=== PATIENT | male | born 1950 | race Caucasian/White ===

== ENCOUNTER → 2022-01-02 13:35 | Outpatient (BNVA) | payer MEDICARE, SELFPAY | PROVIDERS: PCP Family Medicine; Visit Provider Urology | DX: R97.20 Elevated prostate specific antigen [PSA] (principal); N40.1 Benign prostatic hyperplasia with lower urinary tract symptoms; N13.8 Other obstructive and reflux uropathy; R33.9 Retention of urine, unspecified; R31.0 Gross hematuria; E11.9 Type 2 diabetes mellitus without complications; Z79.899 Other long term (current) drug therapy | CPT/HCPCS: 99202 ==

== ENCOUNTER → 2022-05-06 13:52 | Outpatient (BNVA) | payer MEDICARE, SELFPAY | PROVIDERS: PCP Family Medicine; Visit Provider Urology | DX: R97.20 Elevated prostate specific antigen [PSA] (principal); N40.1 Benign prostatic hyperplasia with lower urinary tract symptoms; N13.8 Other obstructive and reflux uropathy; R35.1 Nocturia | CPT/HCPCS: 52000; 99212 ==

== ENCOUNTER 2022-11-05 12:21 | Outpatient (AMB) | payer MEDICARE, SELFPAY ==
--- NOTE | 2022-11-05 11:43 | A.OFFVIS_ITS ---
Intake Intake Visit Reasons: 6m follow up/PSA(set) Medication List - Last Reconciled 11/05/22 by Enrique Haskins MD atorvastatin 20 mg PO DAILY blood sugar diagnostic (FreeStyle Lite Strips) As directed famotidine 20 mg PO BID fenofibrate micronized 134 mg PO DAILY finasteride 5 mg PO DAILY 90 days lisinopril 20 mg PO DAILY metformin 1,000 mg PO BID pantoprazole 40 mg PO BID tamsulosin 0.4 mg PO DAILY HPI HPI Comments History of Present Illness Details Joshua is a pleasant male. He is a patient of . He is seen for the following urologic conditions - elevated PSA - BPH Good response to finasteride with PSA remaining at 2.7 Nocturia x2 Repeat PSA in 6 months Lower urinary tract symptoms Progressive rise in PSA and weakness of stream CALEB 2+ normal Prior evaluation for gross hematuria February 202002/27 CT urogram had indicated enlarged prostate. Cystoscopy confirmed finding with no abnormality of bladder but enlarged prostate Slowly rising PSA Prostate biopsy had been suggested by prior urologist Laboratory testing - 02/27 3.0, 11/29 4.5 - 03/01 ExoDx score 25 - with is over suggested cutoff of 20 however is still only indicative of relative risk - PSA on finasteride 05/01 2.4, 10/31 2.7 Concurrent disease include diabetes Therapeutic plan continue finasteride and repeat PSA in 6 months Review of Systems Const Denies chills and Denies fever(s) Card Reports no additional complaints and Denies syncope Resp Denies cough GI Denies abdominal pain and Denies heartburn Reports as per HPI and Denies change in libido Neuro Denies syncope Psych Denies change in libido Endo Denies change in libido Physical Exam Const General: cooperative, healthy appearing, comfortable and no acute distress Orientation/consciousness: patient oriented x3 HEENT Face and sinus: Yes normal facial exam Mouth: moist mucous membranes Neck Neck: Yes normal visual inspection, Yes full ROM and Yes trachea midline Chest Chest palpation & inspection: normal inspection of the chest Resp Effort & Inspection: normal respiratory effort, able to speak in complete sentences and no respiratory distress GI Inspection: Yes normal to inspection Back/Spine/Pelvis Cervical Spine: normal cervical lordosis Thoracic/Lumbar Spine: thoracic and lumbar spine normal to inspection Skin General skin exam: no rashes or lesions noted Neuro General: patient oriented x3, gait normal, tone normal and moves all extremities Extrem General: Yes normal to inspection and Yes capillary refill normal Assessment & Plan Assessment & Plan (1) Elevated PSA: Code(s): R97.20 - Elevated prostate specific antigen [PSA] (2) BPH w urinary obs/LUTS: Code(s): N40.1 - Benign prostatic hyperplasia with lower urinary tract symptoms; N13.8 - Other obstructive and reflux uropathy Plan Six month follow-up Orders: Orders Prostate Specific Antigen 6 Months N40.1 - Benign prostatic hyperplasia with lower urinary tract symptoms, N13.8 - Other obstructive and reflux uropathy Medications: Refilled finasteride 5 mg PO DAILY 90 tabs 1RF 90 days N40.1 - Benign prostatic hyperplasia with lower urinary tract symptoms, N13.8 - Other obstructive and reflux uropathy, R33.9 - Retention of urine, unspecified Patient Instructions: Imaging studies, laboratory and physical exam results were discussed and reviewed in detail. No major barriers to patient understanding were identified. An opportunity to ask questions regarding the treatment plan was provided. All questions were answered. The patient expressed understanding and agreement with the above treatment plan. The patient is aware they should contact our office by phone for worsening of their current condition or the appearance of new urologic symptoms. Compliance is encouraged with any medications and followup testing that is ordered. It is a privilege to participate in the urologic care of your patient. If you have any questions or concerns regarding treatment for the above conditions, or other urologic issues, please do not hesitate to contact me. The office telephone contact is [phone]. This note is constructed using voice recognition software. While every effort has been made to ensure accuracy private investigator surveillance errors may have been included. Yours sincerely, Dr Enrique Haskins MD, [facility] - Urology Providers of Expert, Compassionate Care for the Genitourinary System Coding Level of Care Code Est Pt Level 3 (00044) Diagnoses Elevated PSA R97.20 BPH w urinary obs/LUTS N40.1; N13.8
== END 2022-11-05 13:22 | disposition home or self-care (01) ==
LOC: HO.HUSH 12:21
PROVIDERS: PCP Family Medicine; Visit Provider Urology
DX: R97.20 Elevated prostate specific antigen [PSA] (principal); N40.1 Benign prostatic hyperplasia with lower urinary tract symptoms; N13.8 Other obstructive and reflux uropathy
CPT/HCPCS: 99213

== ENCOUNTER → 2022-11-05 12:21 | Outpatient (BNVA) | payer MEDICARE, SELFPAY | PROVIDERS: PCP Family Medicine; Visit Provider Urology | DX: N40.1 Benign prostatic hyperplasia with lower urinary tract symptoms (principal); N13.8 Other obstructive and reflux uropathy; R39.12 Poor urinary stream; R97.20 Elevated prostate specific antigen [PSA]; R33.9 Retention of urine, unspecified; R35.1 Nocturia | CPT/HCPCS: 99212 ==

== ENCOUNTER 2023-07-08 11:07 | Outpatient (AMB) | payer MEDICARE, SELFPAY ==
--- NOTE | 2023-07-08 11:09 | A.OFFVIS_ITS ---
Intake Intake Visit Reasons: 6m/PSA(psa?)Confirmed Intake Note: Patient presents today for a 6 month follow-up Meds- Tamsulosin, Finasteride, Allergies to Antibiotic- No Known Allergies Blood Thinner- None Post Void Residual:15ml Technical Proposal Writer Required: No Accompanied by: Allergies nkda Allergy (Unknown, Uncoded 07/08/23 11:26) Unknown Medication List - Last Reconciled 07/08/23 by Enrique Haskins MD atorvastatin 20 mg PO DAILY blood sugar diagnostic (FreeStyle Lite Strips) As directed empagliflozin (Jardiance) 10 mg PO DAILY famotidine 20 mg PO BID fenofibrate micronized 134 mg PO DAILY finasteride 5 mg PO DAILY 90 days lisinopril 20 mg PO DAILY pantoprazole 40 mg PO BID tamsulosin 0.4 mg PO DAILY HPI HPI Comments History of Present Illness Details Joshua is a pleasant male. He is a patient of . He is seen for the following urologic conditions - elevated PSA - BPH PSA 4.4 Nocturia x2 Remains on finasteride. Discussed repeating PSA in 4 months. Discussed steps to minimize noise on PSA level - no caffeine the morning of, coffee, Coke, tea Recommend biopsy if persistently elevated PSA Lower urinary tract symptoms Progressive rise in PSA and weakness of stream CALEB 2+ normal Prior evaluation for gross hematuria February 202002/27 CT urogram had indicated enlarged prostate. Cystoscopy confirmed finding with no abnormality of bladder but enlarged prostate Slowly rising PSA Prostate biopsy had been suggested by prior urologist Laboratory testing - 02/27 3.0, 11/29 4.5 - 03/01 ExoDx score 25 - with is over suggested cutoff of 20 however is still only indicative of relative risk - PSA on finasteride 05/01 2.4, 10/31 2.7, 06/02 4.4 Concurrent disease include diabetes Therapeutic plan continue finasteride and repeat in 4 months Review of Systems Const Denies chills and Denies fever(s) Card Reports no additional complaints and Denies syncope Resp Denies cough GI Denies abdominal pain and Denies heartburn Reports as per HPI and Denies change in libido Neuro Denies syncope Psych Denies change in libido Endo Denies change in libido Physical Exam Const General: cooperative, healthy appearing, comfortable and no acute distress Orientation/consciousness: patient oriented x3 HEENT Face and sinus: Yes normal facial exam Mouth: moist mucous membranes Neck Neck: Yes normal visual inspection, Yes full ROM and Yes trachea midline Chest Chest palpation & inspection: normal inspection of the chest Resp Effort & Inspection: normal respiratory effort, able to speak in complete sentences and no respiratory distress GI Inspection: Yes normal to inspection Back/Spine/Pelvis Cervical Spine: normal cervical lordosis Thoracic/Lumbar Spine: thoracic and lumbar spine normal to inspection Skin General skin exam: no rashes or lesions noted Neuro General: patient oriented x3, gait normal, tone normal and moves all extremities Extrem General: Yes normal to inspection and Yes capillary refill normal Office Procedures Post Void Residual Post Residual Void Post Void Residual (PVR): 15 [id number] Void Residual by ultrasound Assessment & Plan Assessment & Plan (1) Elevated PSA: Code(s): R97.20 - Elevated prostate specific antigen [PSA] (2) BPH w urinary obs/LUTS: Code(s): N40.1 - Benign prostatic hyperplasia with lower urinary tract symptoms; N13.8 - Other obstructive and reflux uropathy Plan Four month follow-up PSA Orders: Orders AMB Post Void Residual by ultrasound Today R33.9 - Retention of urine, unspecified PSA,Total (Free>4and<10) 4 Months R97.20 - Elevated prostate specific antigen [PSA] Patient Instructions: Imaging studies, laboratory and physical exam results were discussed and reviewed in detail. No major barriers to patient understanding were identified. An opportunity to ask questions regarding the treatment plan was provided. All questions were answered. The patient expressed understanding and agreement with the above treatment plan. The patient is aware they should contact our office by phone for worsening of their current condition or the appearance of new urologic symptoms. Compliance is encouraged with any medications and followup testing that is ordered. It is a privilege to participate in the urologic care of your patient. If you have any questions or concerns regarding treatment for the above conditions, or other urologic issues, please do not hesitate to contact me. The office telephone contact is [phone]. This note is constructed using voice recognition software. While every effort has been made to ensure accuracy social services assistant errors may have been included. Yours sincerely, Dr Enrique Haskins MD, [facility] - Urology Providers of Expert, Compassionate Care for the Genitourinary System Coding Level of Care Code Est Pt Level 3 (91035) Diagnoses Elevated PSA R97.20 BPH w urinary obs/LUTS N40.1; N13.8 CPT Codes Post Residual Void - PVR CPT Code: 90224-[id number] Void Residual by ultrasound ([id number])
== END 2023-07-08 11:46 | disposition home or self-care (01) ==
PROVIDERS: PCP Family Medicine; Visit Provider Urology
DX: R97.20 Elevated prostate specific antigen [PSA] (principal); N40.1 Benign prostatic hyperplasia with lower urinary tract symptoms; N13.8 Other obstructive and reflux uropathy
CPT/HCPCS: 99213

== ENCOUNTER → 2023-07-08 11:07 | Outpatient (BNVA) | payer MEDICARE, SELFPAY | PROVIDERS: PCP Family Medicine; Visit Provider Urology | DX: R97.20 Elevated prostate specific antigen [PSA] (principal); N40.1 Benign prostatic hyperplasia with lower urinary tract symptoms; N13.8 Other obstructive and reflux uropathy | CPT/HCPCS: 51798; 99212 ==

== ENCOUNTER 2023-11-05 11:26 | Outpatient (AMB) | payer MEDICARE, SELFPAY ==
--- NOTE | 2023-11-05 11:27 | A.OFFVIS_ITS ---
Intake Visit Reasons: 4m/PSA(psa?) Intake Note: Patient presents today for tele visit follow up Meds- Tamsulosin, Finasteride, Allergies to Antibiotic- No Known Allergies Blood Thinner- None Local Government Legislator Required: No Accompanied by: Allergies nkda Allergy (Unknown, Uncoded 11/05/23 11:28) Unknown HPI Comments Details: Joshua is a pleasant male. He is a patient of . He is seen for the following urologic conditions - Elevated PSA - Lower Urinary Tract Symptoms Telemedicine Evaluation 15 min Consultation [employer] Video PSA 11/01 5.1 Nocturia x2 Remains on finasteride Discussed steps to minimize noise on PSA level - no caffeine the morning of, coffee, Coke, tea Recommend biopsy He has read about getting an MRI 1st for a fusion biopsy. MRI ordered. Lower urinary tract symptoms Progressive rise in PSA and weakness of stream CALEB 2+ normal Prior evaluation for gross hematuria February 202002/27 CT urogram had indicated enlarged prostate. Cystoscopy confirmed finding with no abnormality of bladder but enlarged prostate Slowly rising PSA Prostate biopsy had been suggested by prior urologist Laboratory testing - 02/27 3.0, 11/29 4.5 - 03/01 ExoDx score 25 - with is over suggested cutoff of 20 however is still only indicative of relative risk - PSA on finasteride 05/01 2.4, 10/31 2.7, 06/02 4.4, 07/04 4.4 Concurrent disease include diabetes Therapeutic plan continue finasteride and repeat in 4 months Review of Systems Const All systems reviewed & are unremarkable except as noted in HPI and below Reports no additional complaints Resp Reports no additional complaints GI Reports no additional complaints Reports as per HPI Musc Reports no additional complaints Physical Exam Telemedicine evaluation Appropriate responses Regular breathing rate and rhythm HEENT Head: Yes normal to inspection Ears: hearing grossly normal bilaterally Eyes General: appearance normal, both eyes and all related structures Neck Neck: Yes normal visual inspection Chest Chest palpation & inspection: normal inspection of the chest Resp Effort & Inspection: normal respiratory effort and able to speak in complete sentences Telehealth Telehealth Telehealth Platform: [employer]a et Léo Location of provider rendering services: practice address Location of patient: address on file Patient Identification confirmed using: Name, : Yes Telehealth method: video Patient verbally consented to treatment: Yes Patient verbally consented to billing insurance company: Yes Patient informed of any privacy concerns related to visit: Yes Assessment & Plan Assessment & Plan (1) Elevated PSA: Code(s): R97.20 - Elevated prostate specific antigen [PSA] Category: Medical (2) BPH w urinary obs/LUTS: Code(s): N40.1 - Benign prostatic hyperplasia with lower urinary tract symptoms; N13.8 - Other obstructive and reflux uropathy Category: Medical Plan Prostate MRI Consider targeted biopsy Orders: Orders Creatinine Today R39.15 - Urgency of urination, R97.20 - Elevated prostate specific antigen [PSA] Blood Urea Nitrogen Today R39.15 - Urgency of urination, R97.20 - Elevated prostate specific antigen [PSA] MR pelvis wo/w con Today R97.20 - Elevated prostate specific antigen [PSA] Medications: New levofloxacin Take day before, day of and day after procedure 500 mg PO ONCE 3 days 3 tabs 0RF R97.20 - Elevated prostate specific antigen [PSA] Refilled finasteride 5 mg PO DAILY 90 days 90 tabs 1RF N13.8 - Other obstructive and reflux uropathy, N40.1 - Benign prostatic hyperplasia with lower urinary tract symptoms, R33.9 - Retention of urine, unspecified Patient Instructions: Imaging studies, laboratory and physical exam results were discussed and reviewed in detail. No major barriers to patient understanding were identified. An opportunity to ask questions regarding the treatment plan was provided. All questions were answered. The patient expressed understanding and agreement with the above treatment plan. The patient is aware they should contact our office by phone for worsening of their current condition or the appearance of new urologic symptoms. Compliance is encouraged with any medications and followup testing that is ordered. It is a privilege to participate in the urologic care of your patient. If you have any questions or concerns regarding treatment for the above conditions, or other urologic issues, please do not hesitate to contact me. The office telephone contact is [phone]. This note is constructed using voice recognition software. While every effort has been made to ensure accuracy shift production supervisor errors may have been included. Yours sincerely, Dr Enrique Haskins MD, E[facility] - Urology Providers of Expert, Compassionate Care for the Genitourinary System Coding Level of Care Code Tele Est Pt Level 3 (74570) Diagnoses Elevated PSA R97.20 BPH w urinary obs/LUTS N40.1; N13.8
== END 2023-11-05 14:30 | disposition home or self-care (01) ==
LOC: HO.HUSH 11:26
PROVIDERS: PCP Family Medicine; Visit Provider Urology
DX: R97.20 Elevated prostate specific antigen [PSA] (principal); N40.1 Benign prostatic hyperplasia with lower urinary tract symptoms; N13.8 Other obstructive and reflux uropathy
CPT/HCPCS: 99213

== ENCOUNTER → 2023-11-05 11:26 | Outpatient (BNVA) | payer MEDICARE, SELFPAY | PROVIDERS: PCP Family Medicine; Visit Provider Urology ==

== ENCOUNTER 2024-02-11 09:11 | Outpatient (AMB) | payer MEDICARE, SELFPAY ==
--- NOTE | 2024-02-11 09:07 | A.OFFVIS_ITS ---
Intake Visit Reasons: H&P Prostate Biopsy Intake Note: Patient is present for H&P PROSTATE BIOPSY Urology Medication:LEVOFLOXACIN, FINESTERIDE, TAMSULOSIN Antibiotic Allergy:NONE Blood Thinner:NONE Servicing Rep Required: No Allergies nkda Allergy (Unknown, Uncoded 02/11/24 09:09) Unknown HPI Comments Details: Joshua is a pleasant male. He is a patient of . He is seen for the following urologic conditions - Elevated PSA - Lower Urinary Tract Symptoms Telemedicine Evaluation 15 min Consultation [employer] Saira Video PSA 11/01 5.1, 02/01 5.7 Nocturia x2 Remains on finasteride PCP T calculator would suggest 5-10% risk of high-grade prostate cancer based on free and total PSA MRI performed shows 3.6 cm lesion with contrast enhancement at left apex prostate PiRADS 5 Had repeat gross hematuria recently so needs repeat cystoscopy Lower urinary tract symptoms Progressive rise in PSA and weakness of stream CALEB 2+ normal Prior evaluation for gross hematuria February 202002/27 CT urogram had indicated enlarged prostate. Cystoscopy confirmed finding with no abnormality of bladder but enlarged prostate Slowly rising PSA Prostate biopsy had been suggested by prior urologist Laboratory testing - 02/27 3.0, 11/29 4.5 - 03/01 ExoDx score 25 - with is over suggested cutoff of 20 however is still only indicative of relative risk - PSA on finasteride 05/01 2.4, 10/31 2.7, 06/02 4.4, 07/04 4.4 Concurrent disease include diabetes Therapeutic plan continue finasteride and repeat in 4 months Review of Systems Const All systems reviewed & are unremarkable except as noted in HPI and below Reports no additional complaints Resp Reports no additional complaints GI Reports no additional complaints Reports as per HPI Musc Reports no additional complaints Physical Exam Telemedicine evaluation Appropriate responses Regular breathing rate and rhythm HEENT Head: Yes normal to inspection Ears: hearing grossly normal bilaterally Eyes General: appearance normal, both eyes and all related structures Neck Neck: Yes normal visual inspection Chest Chest palpation & inspection: normal inspection of the chest Resp Effort & Inspection: normal respiratory effort and able to speak in complete sentences Telehealth Telehealth Location of provider rendering services: practice address Location of patient: address on file Patient Identification confirmed using: Name, : Yes Telehealth method: voice only Patient verbally consented to treatment: Yes Patient verbally consented to billing insurance company: Yes Patient informed of any privacy concerns related to visit: Yes Assessment & Plan Assessment & Plan (1) Elevated PSA: Code(s): R97.20 - Elevated prostate specific antigen [PSA] Category: Medical (2) BPH w urinary obs/LUTS: Code(s): N40.1 - Benign prostatic hyperplasia with lower urinary tract symptoms; N13.8 - Other obstructive and reflux uropathy Category: Medical (3) Gross hematuria: Code(s): R31.0 - Gross hematuria Category: Medical Plan Risks, benefits and alternatives to therapy were discussed. These include but are not limited to infection, bleeding, damage to local organs and tissues, need for further interventions. Anesthetic risks regarding cardiac arrhythmia, blood clots, and potential mortality were discussed. The patient understands the typical recovery time and the outpatient nature of the procedure. After consideration of these risks the patient gives full informed consent and they wish to move ahead with the procedure. Prostate Biopsy and Cystoscopy Patient Instructions: Imaging studies, laboratory and physical exam results were discussed and reviewed in detail. No major barriers to patient understanding were identified. An opportunity to ask questions regarding the treatment plan was provided. All questions were answered. The patient expressed understanding and agreement with the above treatment plan. The patient is aware they should contact our office by phone for worsening of their current condition or the appearance of new urologic symptoms. Compliance is encouraged with any medications and followup testing that is ordered. It is a privilege to participate in the urologic care of your patient. If you have any questions or concerns regarding treatment for the above conditions, or other urologic issues, please do not hesitate to contact me. The office telephone contact is [phone]. This note is constructed using voice recognition software. While every effort has been made to ensure accuracy computer programming manager errors may have been included. Yours sincerely, Dr Enrique Haskins MD, EWA [facility] - Urology Providers of Expert, Compassionate Care for the Genitourinary System Coding Level of Care Code Tele Est Pt Level 3 (25930) Diagnoses Elevated PSA R97.20 BPH w urinary obs/LUTS N40.1; N13.8 Gross hematuria R31.0
== END 2024-02-11 09:50 | disposition home or self-care (01) ==
LOC: HO.HUSH 09:11
PROVIDERS: PCP Family Medicine; Visit Provider Urology
DX: R97.20 Elevated prostate specific antigen [PSA] (principal); N40.1 Benign prostatic hyperplasia with lower urinary tract symptoms; N13.8 Other obstructive and reflux uropathy; R31.0 Gross hematuria
CPT/HCPCS: 99442

== ENCOUNTER → 2024-02-11 09:11 | Outpatient (BNVA) | payer MEDICARE, SELFPAY | PROVIDERS: PCP Family Medicine; Visit Provider Urology ==

== ENCOUNTER 2024-02-16 07:45 | Outpatient (REF) | payer MEDICARE, SELFPAY ==
[2024-02-16] MEDS: levoFLOXacin 500 MG TABLET PO (08:36)
[2024-02-16] MEDS: Lidocaine HCl 1 % MPF 5 ML VIAL 10 ML SUBCUT (08:36)
--- NOTE | 2024-02-16 18:17 | W.PM.OPN ---
Operative Note Operative Note Date of Service: 02/16/24 Narrative: Preoperative diagnosis: Elevated PSA, hematuria Postoperative diagnosis: Elevated PSA , hematuria Procedure: Cystoscopy 1. transrectal ultrasound measurement of prostate 2. transrectal ultrasound-guided pudendal nerve block 3. transrectal ultrasound-guided prostate biopsy 12 core Surgeon: Dr. Enrique Haskins Anesthetic: Lidocaine per urethra, 10cc 1% lidocaine Indications for procedure: Elevated PSA 5.6, hematuria Counselling: Technical aspects, risks and benefits of proposed procedure were discussed in full. All questions have been answered, written consent has been obtained and patient agrees to proceed. Procedure: The patient was brought into the procedure area and placed supine position. Patient identity confirmed. Perioperative antibiotics confirmed. Safety pause time out performed. Cystoscopy performed using a disposable Urovue digital 16 Estonian cystoscope. Meatus circumcised Urethra anterior and posterior urethra normal Prostatic Urethra unremarkable - area of vascularity on prostate Bladder examination with retroflexion of cystoscope Bladder Orifices normal shape and position Bladder Capacity medium Trabeculations grade 2 Cellule Formation - Diverticulum Formation - Mucosal Erythema - Bladder Tumor - Upon completion of the procedure patient placed in a left lateral decubitus position. CALEB was performed to dilate rectal sphincter Iodine 10cc with 60 cc gel was placed per rectum to reduce infection risk using a catheter tip syringe. 8 Hz Ian rectal end-fire ultrasound probe was placed transrectally without difficulty. The prostate was visualized. Seminal vesicles were normal. Prostate margins were clearly demarcated. Bladder was seen superiorly. No cystic structures were noted No calcifications were noted at the surgical margin Left posterior lateral deformity of prostate consistent with apical nodule that was felt on initial CALEB The prostate was measured in 3 dimensions Prostatic Width: 4.8 cm Prostatic Height: 4.3 cm Urethral Length: 5.5 cm Total volume equals : 60 ml An ultrasound-guided pudendal nerve block was performed using a 22 gauge spinal needle in the sagittal plane. 4 cc of 1% lidocaine placed at the junction of each seminal vesicle and 2 cc placed at the apex of the prostate. A 12 core biopsy was performed with 6 cores each side using an 18 gauge prostate biopsy gun. Two cores each were taken at the prostate apex, mid and base on each side. Cores were spaced between lateral and medial aspects. Each core was examined as placed on specimen foam as part of machined parts quality inspector to ensure a minimum 1 cm of length and minimal discontinuity. He tolerated the procedure well with minimal rectal bleeding. Blood pressure remained stable following procedure. He was able to ambulate to bathroom after 5 minutes. Printed instructions regarding antibiotic use and common adverse events from the procedure such as low-grade temperature, potential infection and bleeding were given. He understands to call the office or go to an emergency room should any of these events arise. Pathology: 12 core prostate biopsy. CPT code 31401: Transrectal ultrasound; this is a diagnostic test for evaluation of the prostate and surrounding structures, looking for abnormalities or suspicious areas worrisome for cancer CPT code 61373: Biopsy, prostate; needle or punch, single or multiple, any approach CPT code 78025: Ultrasonic guidance for needle placement (eg, biopsy, aspiration, injection, localization device), imaging supervision and interpretation
== END 2024-02-16 07:46 | disposition home or self-care (01) ==
LOC: HO.US 07:45
PROVIDERS: PCP Family Medicine; Visit Provider Urology
DX: R97.20 Elevated prostate specific antigen [PSA] (principal); R31.9 Hematuria, unspecified
CPT/HCPCS: 55700; 76942; 88305; 88344; J2003

== ENCOUNTER → 2024-02-16 07:45 | Outpatient (BNV) | payer MEDICARE, SELFPAY | PROVIDERS: PCP Family Medicine; Visit Provider Urology | DX: R97.20 Elevated prostate specific antigen [PSA] (principal); R31.9 Hematuria, unspecified | CPT/HCPCS: 55700; 76872; 76942 ==

== ENCOUNTER 2024-03-03 14:07 | Outpatient (AMB) | payer MEDICARE, SELFPAY ==
--- NOTE | 2024-03-03 14:09 | A.OFFVIS_ITS ---
Intake Visit Reasons: Prostate bx results Intake Note: Patient is Present for Telephone Follow Up Biopsy Results Urology Med: Finasteride Antibiotic Allergy: None Blood Thinner:None Allergies nkda Allergy (Unknown, Uncoded 02/11/24 09:09) Unknown HPI Comments Details: Joshua is a pleasant male. He is a patient of . He is seen for the following urologic conditions - Elevated PSA - Lower Urinary Tract Symptoms - Prostate Cancer Telemedicine Evaluation 15 min Consultation [email or web address] Saira Video Discussed prostate cancer diagnosis Options for therapy presented Plan PET-CT scan Referral to Dr. Kaye radiation oncology at [facility] Two week follow-up GnRH injection Prostate Cancer Therapy Discussion today focused on treatment options for prostate cancer. The patient has already reviewed educational materials that had been provided to him in printed form. The NCCN criteria for imaging, molecular testing and germ line testing were discussed. Prognostic Model Information calculated using STAR-CAPS [email or web address] Stage Prediction T2a 5yr Specific Mortality 96% 10yr Specfic Mortality 85% The discussion was then focused on therapeutic options which include 1) Deferred therapy/active surveillance. Recommended in the setting of low volume, very low risk and low risk disease. Criteria include 3 cores all less, same side, no core greater than 50% disease. Evaluation may be augmented with imaging such as pelvic MRI and genetic evaluation of biopsy material. Somatic tissue genetic testing such as Prolaris, which focuses on tumor-specific pathogenic variants that may identify an indication for further germline testing and can guide therapeutic decisions in the setting of low risk and low volume disease. - The patient is not a candidate for active surveillance. NCCN Prostate Cancer Guideline 4.2022 PROS-F Page 2 PRINCIPLES OF ACTIVE SURVEILLANCE AND OBSERVATION Confirmatory Testing to Establish Appropriateness of Active Surveillance: - Goals of confirmatory testing are to help facilitate early identification of those patients who may be at a higher risk of future grade reclassification or cancer progression. - Since an initial prostate biopsy may underestimate tumor grade or volume, confirmatory testing is strongly recommended within the first 6 to 12 months of diagnosis for patients who are considering active surveillance. - Options for confirmatory testing include prostate biopsy, mpMRI with calculation of PSA density (and repeat biopsy as indicated), and/or molecular tumor analysis, see Principles of Risk Stratification (PROS-D). - Early confirmatory testing may not be necessary in patients who have had an mpMRI prior to diagnostic biopsy. ?All patients should undergo a confirmatory prostate biopsy within 1?2 years of their diagnostic biopsy 2) Targeted Cryotherapy Ablation. The technique of cryotherapy was described. PSA free progression rates were discussed. Suitable candidates in general have low volume grade group 1 or grade group 2 disease. Typically pelvic MRI with targeted mapping biopsies are required for treatment planning. - The patient is not a candidate for image guided targeted cryotherapy ablation. 3) Robotic Prostatectomy. Salient features of the patient's PSA, Wilson score and disease stage were applied to the [facility] nomogram. Relevant rates of extracapsular extension, seminal vesicle involvement consuelo involvement with discussed. Pathologic up staging and down staging on final specimen was discussed. Salient features of the procedure, hospitalization and recovery were discussed. - The patient is not a candidate for robotic prostatectomy. 4) Radiation therapy was described. IMRT, hyperfractionated therapy, permanent seed implant with all without concomitant androgen deprivation therapy and rectal protection were discussed. There is a small separation regarding cancer control between radiation and prostatectomy at approximately 15 years. There is an evolving preference for hyper fractionated therapy. This gives the same radiation total dose in a reduced number of individual treatment sessions. This approach is associated with higher risks of rectal bleeding. To ameliorate these risks injection of a spacer gel posterior to the prostate has been advocated. This is only indicated in patients without evidence of extracapsular extension posteriorly, and should be considered with caution where disease is primary grade 4. Brachytherapy was described in detail. Typically this is a same day procedure. Therapy is typically well tolerated and gives good control for low-risk prostate cancer and cancer that does not involve neurovascular invasion. - The patient is a candidate for hormones plus hyperfractionated therapy with possible rectal spacer Different risks were described for each therapeutic option. Ranges from the published literature were discussed. Consequent morbidity and treatment to address complications were discussed. These include - robotic prostatectomy - Typically patients are in hospital for one day and miss 4 weeks of work. The importance of preoperative walking and Kegel exercises was stressed. Complications, including but not limited to; acute complications regarding blood loss, transfusion, DVT, ileus, wound infection and potential mortality. Long-term complications such as impotence, UTI, urethral stricture, bladder neck contracture, incontinence. Penile shrinkage and chronic pain were discussed and reviewed. - radiation - IMRT typically this takes 25-40 daily treatments administered on a Thursday through Thursday sequence. Treatment is normally well tolerated. associated side effects include urge, frequency, dysuria, hematuria, loose bowels and fatigue, particularly toward the end of therapy. These can be ameliorated to some degree with medication. Long-term risks regarding impotence and a small risk of chronic urinary urge and incontinence were discussed - brachytherapy General anesthesia is used. Radioactive seeds are placed. There may be a required planning visit. Risks regarding anesthesia with DVT, PE, infection, urinary retention, urgency, and frequency were discussed. Long-term risks include bladder neck contraction, impotence, urge, potential for secondary cancer of the bladder base The patient has Grade Group for pT2 prostate cancer disease The patient is a candidate for germline testing in accordance with the NCCN guideline Germline testing Germline testing is used to identify inherited pathogenic variants in DNA, which can guide screening, familial testing, and treatment decision-making. The National Comprehensive Cancer Network (NCCN) has recommended the use of germline genetic testing for patients with prostate cancer since 2018.?Germline testing should be considered for patients with clinically low-to intermediate- localized disease with a family history of prostate cancer; or high-to very high-risk localized disease. For regional or distant metastatic disease, germline testing is recommended regardless of initial risk. Please see the vania posada excerpt. NCCN Version 4.2023 PROS-C 2 of 3 Germline testing is recommended in patients with a personal history of prostate cancer in the following scenarios: ? By prostate cancer stage or risk group (diagnosed at any age) - Metastatic, regional (node positive), [id number] localized, or high- risk localized prostate cancer ? By family history and/or ancestry - >= 1 - first-, second-, or third-degree relative with: - breast cancer at age <50 - colorectal or endometrial cancer at age <50 - male (sex assigned at ) breast cancer at any age - ovarian cancer at any age - exocrine pancreatic cancer at any age - metastatic, regional, pcyo-xmxy-geny, or high-risk prostate cancer at any age - >= 1- first-degree relative (parent or sibling) with: - prostate cancer at age <60 - >= 2- first-, second-, or third-degree relatives with: - breast cancer at any age - prostate cancer at any age - >= 3 - first- or second-degree relatives with: - Crespo syndrome-related cancers, especially if diagnosed <50 y: colorectal, endometrial, gastric, ovarian, exocrine pancreas, upper tract urothelial, glioblastoma, biliary tract, and small intestinal cancer - A known family history of familial cancer risk mutation (pathogenic/likely pathogenic variants), especially in: BRCA1, BRCA2, LILIAM, PALB2, CHEK2, MLH1, MSH2, MSH6, PMS2, and EPCAM - Ashkenazi Gnosticist ancestry ? Personal history of breast cancer Germline testing may be considered in patients with a personal history of prostate cancer in the following scenarios: ? By prostate cancer tumor characteristics (diagnosed at any age) - intermediate-risk prostate cancer with intraductal/cribriform histologyc ? By prostate cancer AND a prior personal history of any of the following cancers: exocrine pancreatic, colorectal, gastric, melanoma, upper tract urothelial, glioblastoma, biliary tract, and small intestinal References: Ruth RT, Av K, Jamal MJ, et al. Development and Validation of a Clinical Prognostic Stage Group System.?[facility]. doi: [email or web address] PSA 11/01 5.1, 02/01 5.7 PCP T calculator would suggest 5-10% risk of high-grade prostate cancer based on free and total PSA MRI performed shows 3.6 cm lesion with contrast enhancement at left apex prostate PiRADS 5 Prostate Cancer - Grade Group 4 - Wilson 8 Histologic type: Adenocarcinoma Histologic grade: Wilson score: 4+4=8 % of pattern 4: 100% % of pattern 5: Not identified Grade group: 4 Tumor quantitation: Number cores positive: 5 Total number of cores: 12 % of tissue involved: See above for details Periprostatic fat inv.: Not identified Seminal vesicle inv.: Not identified Perineural inv.: Not identified LVI: Not identified Lower urinary tract symptoms Progressive rise in PSA and weakness of stream CALEB 2+ normal Prior evaluation for gross hematuria February 202002/27 CT urogram had indicated enlarged prostate. Cystoscopy confirmed finding with no abnormality of bladder but enlarged prostate Slowly rising PSA Prostate biopsy had been suggested by prior urologist Laboratory testing - 02/27 3.0, 11/29 4.5 - 03/01 ExoDx score 25 - with is over suggested cutoff of 20 however is still only indicative of relative risk - PSA on finasteride 05/01 2.4, 10/31 2.7, 06/02 4.4, 07/04 4.4 Concurrent disease include diabetes Therapeutic plan continue finasteride and repeat in 4 months Review of Systems Const All systems reviewed & are unremarkable except as noted in HPI and below Reports no additional complaints Resp Reports no additional complaints GI Reports no additional complaints Reports as per HPI Musc Reports no additional complaints Physical Exam Telemedicine evaluation Appropriate responses Regular breathing rate and rhythm HEENT Head: Yes normal to inspection Ears: hearing grossly normal bilaterally Eyes General: appearance normal, both eyes and all related structures Neck Neck: Yes normal visual inspection Chest Chest palpation & inspection: normal inspection of the chest Resp Effort & Inspection: normal respiratory effort and able to speak in complete sentences Telehealth Telehealth Location of provider rendering services: practice address Location of patient: address on file Patient Identification confirmed using: Name, : Yes Telehealth method: voice only Patient verbally consented to treatment: Yes Patient verbally consented to billing insurance company: Yes Patient informed of any privacy concerns related to visit: Yes Assessment & Plan Assessment & Plan (1) Hormone sensitive prostate cancer: Code(s): C61 - Malignant neoplasm of prostate; Z19.1 - Hormone sensitive malignancy status Category: Medical Plan See above Orders: Orders PET CT fusion skull to thigh Today C61 - Malignant neoplasm of prostate, Z19.1 - Hormone sensitive malignancy status Referrals Radiation Oncology Referral C61 - Malignant neoplasm of prostate, Z19.1 - Hormone sensitive malignancy status Patient Instructions: Imaging studies, laboratory and physical exam results were discussed and reviewed in detail. No major barriers to patient understanding were identified. An opportunity to ask questions regarding the treatment plan was provided. All questions were answered. The patient expressed understanding and agreement with the above treatment plan. The patient is aware they should contact our office by phone for worsening of their current condition or the appearance of new urologic symptoms. Compliance is encouraged with any medications and followup testing that is ordered. It is a privilege to participate in the urologic care of your patient. If you have any questions or concerns regarding treatment for the above conditions, or other urologic issues, please do not hesitate to contact me. The office telephone contact is [phone]. This note is constructed using voice recognition software. While every effort has been made to ensure accuracy gang worker errors may have been included. Yours sincerely, Dr Enrique Haskins MD, EWA [facility] - Urology Providers of Expert, Compassionate Care for the Genitourinary System Coding Level of Care Code Tele Est Pt Level 4 (16855) Diagnoses Hormone sensitive prostate cancer C61; Z19.1
== END 2024-03-03 15:17 | disposition home or self-care (01) ==
LOC: HO.HUSH 14:07
PROVIDERS: PCP Family Medicine; Visit Provider Urology
DX: C61 Malignant neoplasm of prostate (principal); Z19.1 Hormone sensitive malignancy status
CPT/HCPCS: 99442

== ENCOUNTER → 2024-03-03 14:07 | Outpatient (BNVA) | payer MEDICARE, SELFPAY | PROVIDERS: PCP Family Medicine; Visit Provider Urology ==

== ENCOUNTER 2024-03-15 09:56 | Outpatient (AMB) | payer MEDICARE, SELFPAY ==
--- NOTE | 2024-03-15 10:23 | AM.OFFVISNUR ---
Intake Visit Reasons: Firmagon(1st)PA Set Allergies nkda Allergy (Unknown, Uncoded 02/11/24 09:09) Unknown Office Meds degarelix 120 mg subcutaneous solution Performing Provider: Enrique Haskins MD [facility] Administered by: Chepe Ramos LPN on 03/15/24 10:23 Dose Route Admin Location Dispensed Lot Number Expiration Date [facility] Airline Reservation Agent 240 mg subcut abdomen 240 mg [id number] 02/08/26 [address]-1 [facility] Assessment & Plan Assessment & Plan Orders: Orders AMB Degarelix Injection Practice Supplied Today C61 - Malignant neoplasm of prostate, Z19.1 - Hormone sensitive malignancy status Medications: New degarelix 240 mg subcut ONCE 1 ea 0RF C61 - Malignant neoplasm of prostate, Z19.1 - Hormone sensitive malignancy status
== END 2024-03-15 10:29 | disposition home or self-care (01) ==
LOC: HO.HUSH 09:57
PROVIDERS: PCP Family Medicine; Visit Provider Urology
DX: C61 Malignant neoplasm of prostate (principal); Z19.1 Hormone sensitive malignancy status
CPT/HCPCS: 96402

== ENCOUNTER → 2024-03-15 09:56 | Outpatient (BNVA) | payer MEDICARE, SELFPAY | PROVIDERS: PCP Family Medicine; Visit Provider Urology | DX: C61 Malignant neoplasm of prostate (principal); Z19.1 Hormone sensitive malignancy status; Z79.818 Long term (current) use of other agents affecting estrogen receptors and estrogen levels | CPT/HCPCS: 96402; J9155 ==

== ENCOUNTER 2024-03-29 07:57 | Outpatient (REF) | payer MEDICARE, SELFPAY ==
--- NOTE | ~2024-03-29 | PE_ITS ---
EXAMINATION: 68Ga-PSMA (ILLUCCIX) PET/CT CLINICAL INDICATION: Initial treatment management. Malignant neoplasm of prostate. Prostate biopsy 02/16/2024. PROCEDURE: Radiopharmaceutical: 68Ga-PSMA (Illuccix); Dose: 5.6 mCi injected in the left antecubital fossa. Image acquisition: 55 minutes following IV radiotracer administration, positron emission tomography was performed from the mid thighs to vertex. Non-contrast low-dose helical CT imaging was performed over the same range without breath-hold for attenuation correction of PET images and anatomic correlation. Total CT exam dose-length product 1015.94 mGy-cm * These CT images were obtained using dose optimization techniques as appropriate, variously including the following: Automated exposure control * Adjustment of mA and/or kV according to patient size (this includes techniques or standardized protocols for targeted exams where dose is matched to indication/reason for exam; i.e. extremities or head) * Use of iterative reconstruction technique COMPARISON: No previous PET CT scan or other relevant imaging studies are available for comparison. The report of an MRI of the prostate performed at [facility] dated 12/21/2023 is available. Additional Clinical information: Surgery:Now ; XRT: No ADT: No FINDINGS: NECK AND VISUALIZED HEAD: There are no foci of abnormal PSMA activity in this region. The distribution of activity appears physiological. THORAX: There are no foci of abnormal PSMA activity in the chest. No suspicious pulmonary nodules are visualized. There is no pleural or pericardial fluid, or pneumothorax. There is no mediastinal, supraclavicular, or axillary lymphadenopathy. ABDOMEN AND PELVIS: In the prostate gland there is a focus of low intensity increased PSMA activity in the apex right anterolateral peripheral zone. This shows SUVmax 4.2, slice 270/311. There are no other discrete foci of abnormal PSMA activity within the prostate. There are no additional foci of abnormal activity at any site in the abdomen and pelvis. Diffuse gastrointestinal activity, homogeneous activity in the liver and spleen and both kidneys is noted and appears physiological. The gallbladder has been resected and there are metallic surgical clips in the gallbladder bed. There is no retroperitoneal, mesenteric, pelvic or inguinal lymphadenopathy. MUSCULOSKELETAL: There are no foci of abnormal PSMA activity in the osseous structures. There are degenerative changes in the spine, most severely in the mid thoracic spine. There are no suspicious sclerotic or lytic lesions visualized. The left acetabulum appears unremarkable. A focus of abnormal signal in the left anterior acetabulum as described in the report of the 12/21/2023 MRI. VASCULAR: Vascular calcifications are noted. SUVmax REFERENCE: Blood: 1.4, slice 120/3; Liver: 6.0, slice 168/311; Parotid: 17.9 on the right, slice 60/311.; PET/PET CT fusion skull to thigh IMPRESSION: 1. There is a focus of low intensity increased PSMA activity in the right anterolateral peripheral zone of the prostate apex, as described above, which is suspicious for prostate malignancy.. 2. No additional abnormality suspicious for metastatic or other malignant lesions are noted. PSMA score reference: Score Reported PSMA expression Uptake 0 No Below blood pool 1 Low Equal to or above blood pool and lower than liver 2 Intermediate Equal to or above liver and lower than parotid gland 3 High Equal to or above parotid gland Electronically signed by: Yaw Uribe MD 03/30/2024 01:34 PM [facility]
== END 2024-03-29 07:58 | disposition home or self-care (01) ==
LOC: HO.PET 07:57
PROVIDERS: PCP Family Medicine; Visit Provider Urology
DX: Z13.89 Encounter for screening for other disorder (principal)

== ENCOUNTER 2024-04-14 12:52 | Outpatient (AMB) | payer MEDICARE, SELFPAY ==
--- NOTE | 2024-04-14 13:04 | MHC.OFFVIS ---
Intake Visit Reasons: CT follow up/ 4 week appt for degralix injection Intake Note: Patient is present for CT F/U 4W APPT FOR DEGRALIX INJECTION Urology Medication:,FINASTERIDE,TAMSULOSIN Antibiotic Allergy:NONE Blood Thinner:NONE Oil Field Laborer Required: No Allergies degarelix Allergy (Mild, Verified 04/14/24 13:08) rash nkda Allergy (Unknown, Uncoded 04/14/24 13:08) Unknown HPI Comments Details: Joshua is a pleasant male. He is a patient of . He is seen for the following urologic conditions - Elevated PSA - Lower Urinary Tract Symptoms - Prostate Cancer Here today for discussion and hormone administration Has seen Dr. Kaye and will be moving ahead with radiation Plan for SpaceOAR placement Did not tolerate injection with Firmagon due to site reaction Six-month GnRH given today Given high-grade nature of disease use of ARB-I during radiation may provide benefit - patient is on finasteride PSA 11/01 5.1, 02/01 5.7 PCP T calculator would suggest 5-10% risk of high-grade prostate cancer based on free and total PSA MRI performed shows 3.6 cm lesion with contrast enhancement at left apex prostate PiRADS 5 04/03 PET-CT 68Ga-PSMA (ILLUCCIX) PET/CT - There is a focus of low intensity increased PSMA activity in the right anterolateral peripheral zone of the prostate apex, as described above, which is suspicious for prostate malignancy Prostate Cancer - Grade Group 4 - Sarah 8 Histologic type: Adenocarcinoma Histologic grade: [place] score: 4+4=8 % of pattern 4: 100% % of pattern 5: Not identified Grade group: 4 Tumor quantitation: Number cores positive: 5 Total number of cores: 12 % of tissue involved: See above for details Periprostatic fat inv.: Not identified Seminal vesicle inv.: Not identified Perineural inv.: Not identified LVI: Not identified Lower urinary tract symptoms Progressive rise in PSA and weakness of stream CALEB 2+ normal Prior evaluation for gross hematuria February 202002/27 CT urogram had indicated enlarged prostate. Cystoscopy confirmed finding with no abnormality of bladder but enlarged prostate Slowly rising PSA Prostate biopsy had been suggested by prior urologist Laboratory testing - 02/27 3.0, 11/29 4.5 - 03/01 ExoDx score 25 - with is over suggested cutoff of 20 however is still only indicative of relative risk - PSA on finasteride 05/01 2.4, 10/31 2.7, 06/02 4.4, 07/04 4.4 Concurrent disease include diabetes Review of Systems Const Denies chills and Denies fever(s) Card Reports no additional complaints and Denies syncope Resp Denies cough GI Denies abdominal pain and Denies heartburn Reports as per HPI and Denies change in libido Neuro Denies syncope Psych Denies change in libido Endo Denies change in libido Physical Exam Const General: cooperative, healthy appearing, comfortable and no acute distress Orientation/consciousness: patient oriented x3 HEENT Face and sinus: Yes normal facial exam Mouth: moist mucous membranes Neck Neck: Yes normal visual inspection, Yes full ROM and Yes trachea midline Chest Chest palpation & inspection: normal inspection of the chest Resp Effort & Inspection: normal respiratory effort, able to speak in complete sentences and no respiratory distress GI Inspection: Yes normal to inspection Back/Spine/Pelvis Cervical Spine: normal cervical lordosis Thoracic/Lumbar Spine: thoracic and lumbar spine normal to inspection Skin General skin exam: no rashes or lesions noted Neuro General: patient oriented x3, gait normal, tone normal and moves all extremities Extrem General: Yes normal to inspection and Yes capillary refill normal Office Meds Eligard (6 month) 45 mg (6 month) subcutaneous syringe Performing Provider: Enrique Haskins MD Performing Location: [facility] [place] [facility] Administered by: Chepe Ramos LPN on 04/14/24 13:38 Dose Route Admin Location Dispensed Lot Number Expiration Date [facility] Train Operations Supervisor 45 mg subcut left arm 45 mg [id number] 03/11/25 12420-114-17 [employer]. Assessment & Plan Assessment & Plan (1) Hormone sensitive prostate cancer: Code(s): C61 - Malignant neoplasm of prostate; Z19.1 - Hormone sensitive malignancy status Category: Medical Plan Risks, benefits and alternatives to therapy were discussed. These include but are not limited to infection, bleeding, damage to local organs and tissues, need for further interventions. Anesthetic risks regarding cardiac arrhythmia, blood clots, and potential mortality were discussed. The patient understands the typical recovery time and the outpatient nature of the procedure. After consideration of these risks the patient gives full informed consent and they wish to move ahead with the procedure. Marker placement with SpaceOAR Orders: Orders AMB Leuprolide Injection - Practice Supplied 04/14/24 C61 - Malignant neoplasm of prostate, Z19.1 - Hormone sensitive malignancy status, N40.1 - Benign prostatic hyperplasia with lower urinary tract symptoms, N13.8 - Other obstructive and reflux uropathy Patient Instructions: Imaging studies, laboratory and physical exam results were discussed and reviewed in detail. No major barriers to patient understanding were identified. An opportunity to ask questions regarding the treatment plan was provided. All questions were answered. The patient expressed understanding and agreement with the above treatment plan. The patient is aware they should contact our office by phone for worsening of their current condition or the appearance of new urologic symptoms. Compliance is encouraged with any medications and followup testing that is ordered. It is a privilege to participate in the urologic care of your patient. If you have any questions or concerns regarding treatment for the above conditions, or other urologic issues, please do not hesitate to contact me. The office telephone contact is [phone]. This note is constructed using voice recognition software. While every effort has been made to ensure accuracy comsec manager errors may have been included. Yours sincerely, Dr Enrique Haskins MD, [facility] - Urology Providers of Expert, Compassionate Care for the Genitourinary System Coding Level of Care Code Est Pt Level 4 (59627) Diagnoses Hormone sensitive prostate cancer C61; Z19.1
--- OUTSIDE RECORDS SUMMARY | 2024-04-20 02:13 | XMS_ITS ---
Author Name [facility] Organization Unknown Results Test Name/Text Value Interpretation Date Range Source POTASSIUM, PLASMA 4.3mmol/L Normal [id number] 3.5 - 5.1 [facility] GLYCOHEMOGLOBIN (A1C) 7.3% Above high normal [id number] 56 4 - 5.6 [facility] VITAMIN D (25-HYDROXY) 54.2ng/mL Normal [id number] 30 - 100 [facility] GFRE 61 Normal [id number] 60 - [facility] TSH 1.15uIU/mL Normal [id number] 0.35 - 4.5 [facility] LDL DIRECT MEASUREMENT 66mg/dL Normal [id number] - 160 [facility] TRIGLYCERIDE 84mg/dL Normal [id number] - 150 [facility] LDL 59 Normal [id number] 0 - 129 [facility] CHOLESTEROL 126mg/dL Normal [id number] - 200 [facility] HDL 50mg/dL Normal [id number] - [facility] ALBUMIN 3.8g/dL Normal [id number] 3.4 - 5 [facility] SODIUM 138mmol/L Normal [id number] 136 - 145 [facility] GLUCOSE 139mg/dL Above high normal [id number] 74 - 100 [facility] BUN 20mg/dL Above high normal [id number] 7 - 18 [facility] CALCIUM 9.6mg/dL Normal [id number] 8.5 - 10.1 [facility] BILIRUBIN,TOTAL 0.6mg/dL Normal [id number] 0.2 - 1 C [facility] CHLORIDE 105mmol/L Normal [id number] 98 - 107 [facility] POTASSIUM SERUM 5.3mmol/L Above high normal [id number] 3.5 - 5.1 [facility] CO2 27mmol/L Normal [id number] 21 - 32 [facility] ALKALINE PHOSPHATASE 46U/L Below low normal [id number] 50 - 136 [facility] AST (SGOT) 23U/L Normal [id number] 15 - 37 [facility] GLOBULIN 3.2g/dL Normal [id number] 2.4 - 4.2 [facility] A/G RATIO 1.2g/dL Normal [facility] ALT (SGPT) 48U/L Normal [id number] 12 - 78 [facility] BUN/CREAT.RATIO 16 Normal [id number] C [facility] CREATININE 1.25mg/dL Normal 0.55 - 1.3 [facility] PROTEIN, TOTAL 7g/dL Normal [id number] 6.4 - 8.2 CT [facility] PROSTATE SPECIFIC ANTIGEN 5.56ng/mL Normal 0 - 6.5 [facility] MAGNESIUM 2.2mg/dL Normal 1.8 - 2.4 [facility] T4 FREE 0.89ng/dL Normal 0.6 - 1.38 [facility] URIC ACID 4.5mg/dL Normal 3.5 - 7.2 [facility] WBC 7.5K/uL Normal [id number] 3.7 - 10.3 [facility] ABSOLUTE GRANULOCYTES 4.4K/uL Normal 2.2 - 7.3 [facility] ABSOLUTE BASO 0.1K/uL Normal [id number] 0 - 0.2 [facility] RBC 5.02M/uL Normal [id number] 4.3 - 6 [facility] IMMATURE GRANULOCYTES 0% Normal 0 - 0 .45 [facility] EOSINOPHILS 3% Normal 0 - 6 [facility] MPV 10fL Normal [id number] 8 - 12 [facility] ABSOLUTE MONOS 0.6K/uL Normal 0.2 - 1.5 CT [facility] BASOPHILS 1% Normal 0 - 2 [facility] NUCLEATED RBC 0% Normal 0 - 0.2 [facility] MCV 91fL Normal [id number] 83 - 102 [facility] MCH 29PG Normal 27 - 34 [facility] HCT 45.6% Normal [id number] 40 - 52 [facility] ABSOLUTE LYMPHS 2.2K/uL Normal [id number] 1.5 - 4.9 C [facility] GRANULOCYTES 59% Normal [id number] 23 - 78 [facility] MONOCYTES 9% Normal 0 - 12 [facility] ABSOLUTE EOS 0.2K/uL Normal [id number] 0 - 0.7 [facility] LYMPHS 29% Normal [id number] 16 - 50 [facility] ABSOLUTE IMMATURE GRANULOCYTES 0K/uL Normal [id number] 0 - 0.3 [facility] HGB 14.4g/dL Normal [id number] 13.5 - 18 [facility] RDW 14.6% Above high normal [id number] 11.1 - 13 .3 [facility] PLATELET COUNT 249K/uL Normal [id number] 150 - 480 [facility] MCHC 31.6g/dL Normal [id number] 31 - 36 [facility] ABSOLUTE NUCLEATED RBC 0K/uL Normal [id number] 0 - 0.012 [facility] PATIENT FASTING? YES Normal [id number] [facility] PSA, TOTAL 5.1ng/mL Critically abnormal [id number] - [facility] PSA, % FREE 21% Critically abnormal [id number] 25 - [facility] PSA, FREE 1.07ng/mL Normal [id number] - [facility] GLYCOHEMOGLOBIN (A1C) 7.3% Above high normal [id number] 23 4 - 5.6 [facility] GFRE 54 Below low normal [id number] 60 - [facility] SODIUM 139mmol/L Normal [id number] 136 - 145 [facility] GLUCOSE 140mg/dL Above high normal [id number] 74 - 100 [facility] BUN 25mg/dL Above high normal [id number] 7 - 18 [facility] CALCIUM 10.2mg/dL Above high normal [id number] 8.5 - 10. 1 [facility] CHLORIDE 106mmol/L Normal [id number] 98 - 107 [facility] POTASSIUM SERUM 4.4mmol/L Normal [id number] 3.5 - 5.1 C [facility] CO2 26mmol/L Normal [id number] 21 - 32 [facility] CREATININE 1.38mg/dL Above high normal [id number] 0.55 - 1 .3 [facility] PSA DIAGNOSTIC 5.77ng/mL Normal [id number] 0 - 6.[facility] NO Normal [id number] [facility] VITAMIN D (25-HYDROXY) 54.1ng/mL Normal [id number] 30 - 100 [facility] MAGNESIUM 1.9mg/dL Normal [id number] 1.8 - 2.4 [facility] T4 FREE 0.84ng/dL Normal [id number] 0.6 - 1.38 [facility] ALBUMIN 3.6g/dL Normal [id number] 3.4 - 5 [facility] SODIUM 137mmol/L Normal [id number] 136 - 145 [facility] GLUCOSE 145mg/dL Above high normal [id number] 74 - 100 [facility] BUN 27mg/dL Above high normal [id number] 7 - 18 [facility] CALCIUM 9.7mg/dL Normal [id number] 8.5 - 10.1 [facility] BILIRUBIN,TOTAL 0.6mg/dL Normal [id number] 0.2 - 1 [facility] CHLORIDE 104mmol/L Normal [id number] 98 - 107 [facility] POTASSIUM SERUM 4.3mmol/L Normal [id number] 3.5 - 5.1 [facility] CO2 26mmol/L Normal [id number] 21 - 32 [facility] ALKALINE PHOSPHATASE 44U/L Below low normal [id number] 50 - 136 [facility] AST (SGOT) 25U/L Normal [id number] 15 - 37 [facility] GLOBULIN 3.3g/dL Normal [id number] 2.4 - 4.2 [facility] A/G RATIO 1.1g/dL Normal [id number] [facility] ALT (SGPT) 47U/L Normal [id number] 12 - 78 [facility] BUN/CREAT.RATIO 16.1 Normal [id number] [facility] CREATININE 1.68mg/dL Above high normal [id number] 0.55 - 1 .3 [facility] PROTEIN, TOTAL 6.9g/dL Normal [id number] 6.4 - 8.2 [facility] GFRE 43 Below low normal [id number] 60 - [facility] TRIGLYCERIDE 181mg/dL Above high normal [id number] - 150 [facility] LDL 53 Normal [id number] 0 - 129 [facility] CHOLESTEROL 131mg/dL Normal [id number] - 200 [facility] HDL 42mg/dL Normal [id number] - [facility] LDL DIRECT MEASUREMENT 69mg/dL Normal [id number] - 160 [facility] URIC ACID 4.8mg/dL Normal [id number] 3.5 - 7.2 [facility] TSH 1.51uIU/mL Normal [id number] 0.35 - 4.5 [facility] GLYCOHEMOGLOBIN (A1C) 7.3% Above high normal [id number] 16 4 - 5.6 [facility] WBC 8.1K/uL Normal [id number] 3.7 - 10.3 [facility] ABSOLUTE GRANULOCYTES 4.7K/uL Normal [id number] 2.2 - 7.3 [facility] ABSOLUTE BASO 0.1K/uL Normal [id number] 0 - 0.2 [facility] RBC 4.81M/uL Normal [id number] 4.3 - 6 [facility] IMMATURE GRANULOCYTES 0% Normal [id number] 0 - 0 .45 [facility] EOSINOPHILS 2% Normal [id number] 0 - 6 [facility] MPV 10fL Normal [id number] 8 - 12 [facility] ABSOLUTE MONOS 0.7K/uL Normal [id number] 0.2 - 1.5 [facility] BASOPHILS 1% Normal [id number] 0 - 2 [facility] NUCLEATED RBC 0% Normal [id number] 0 - 0.2 [facility] MCV 94fL Normal [id number] 83 - 102 [facility] MCH 30PG Normal [id number] 27 - 34 [facility] HCT 45.1% Normal [id number] 40 - 52 [facility] ABSOLUTE LYMPHS 2.5K/uL Normal [id number] 1.5 - 4.9 C [facility] GRANULOCYTES 58% Normal [id number] 23 - 78 [facility] MONOCYTES 8% Normal [id number] 0 - 12 [facility] ABSOLUTE EOS 0.2K/uL Normal 0 - 0.7 [facility] LYMPHS 31% Normal 16 - 50 [facility] ABSOLUTE IMMATURE GRANULOCYTES 0K/uL Normal 0 - 0.3 [facility] HGB 14.2g/dL Normal 13.5 - 18 [facility] RDW 13.9% Above high normal 11.1 - 13 .3 [facility] PLATELET COUNT 249K/uL Normal 150 - [address] [facility] MCHC 31.5g/dL Normal 31 - 36 [facility] ABSOLUTE NUCLEATED RBC 0K/uL Normal [id number] 0 - 0.012 [facility] PATIENT FASTING? YES Normal [id number] [facility] PSA DIAGNOSTIC 4.39ng/mL Normal [id number] 0 - 6.5 CT [facility] GLYCOHEMOGLOBIN (A1C) 6.9% Above high normal [id number] 52 4 - 5.6 [facility] POTASSIUM, PLASMA 4.2mmol/L Normal [id number] 3.5 - 5.1 [facility] SODIUM 138mmol/L Normal [id number] 136 - 145 [facility] CHLORIDE 107mmol/L Normal [id number] 98 - 107 [facility] CO2 24mmol/L Normal [id number] 21 - 32 [facility] GFRE 60 Normal [id number] 60 - [facility] SODIUM 141mmol/L Normal [id number] 136 - 145 [facility] GLUCOSE 142mg/dL Above high normal [id number] 74 - 100 [facility] BUN 17mg/dL Normal [id number] 7 - 18 [facility] CALCIUM 9.6mg/dL Normal [id number] 8.5 - 10.1 [facility] CHLORIDE 108mmol/L Above high normal [id number] 98 - 107 [facility] POTASSIUM SERUM 5.6mmol/L Above high normal [id number] 3.5 - 5.1 [facility] CO2 28mmol/L Normal [id number] 21 - 32 [facility] CREATININE 1.26mg/dL Normal [id number] 0.55 - 1.3 [facility] PATIENT FASTING? NO Normal [id number] [facility] GLYCOHEMOGLOBIN (A1C) 6.8% Above high normal [id number] 20 4 - 5.6 [facility] PSA DIAGNOSTIC 3.68ng/mL Normal [id number] 0 - 6.5 CT [facility] GFRE 59 Below low normal 60 - [facility] SODIUM 141mmol/L Normal 136 - 145 [facility] GLUCOSE 136mg/dL Above high normal 74 - 100 [facility] BUN 14mg/dL Normal 7 - 18 [facility] CALCIUM 9.1mg/dL Normal 8.5 - 10.1 [facility] CHLORIDE 106mmol/L Normal 98 - 107 [facility] POTASSIUM SERUM 5.3mmol/L Above high normal 3.5 - 5.1 [facility] CO2 27mmol/L Normal 21 - 32 [facility] CREATININE 1.28mg/dL Normal 0.55 - 1.3 [facility] PATIENT FASTING? NO Normal [id number] [facility] History of Medication Use Medication Directions Dispensed Refills Start Date End Date Stat Montelukast Sodium 10mg Tablet 12/11/2023 active sulfamethoxazole-trimeth oprim (BACTRIM DS,SEPTRA DS) 800-160 MG per tablet Take 1 tablet by mouth 2 (two) times a day. Begin taking the day prior to prostate biopsy 10/17/2023 active methylPREDNISolone (MEDROL DOSEPAK) 4 MG tablet Take as directed. Be sure to take all the tablets in decreasing doses as stated in the pau 10/17/2023 active JUBLIA 10% Topical Solution 12/08/2022 active Atorvastatin calcium 20mg tablet 12/08/2022 active fenofibrate micronized (LOFIBRA) 134 MG capsule Take 134 mg by mouth daily. 07/05/2022 active atorvastatin (LIPITOR) 20 MG tablet 07/05/2022 active ondansetron (ZOFRAN-ODT) 4 MG disintegrating tablet Take 1 tablet (4 mg total) by mouth 3 times daily (every 8 hours) as needed for nausea or vomiting. Place tablet on tongue to dissolve. 07/05/2022 active oxyCODONE-acetaminophen (PERCOCET) 5-325 mg per tablet Take 1-2 tablets by mouth Every 4 (four) to 6 (six) hours as needed for moderate pain (pain). Max Daily Amount: 12 tablets 07/05/2022 active fenofibrate micronized (LOFIBRA) 134 MG capsule Take 134 mg by mouth daily. 07/05/2022 active PANTOprazole (PROTONIX) 40 MG EC tablet 07/05/2022 active metFORMIN (GLUCOPHAGE-XR) 500 MG 24 hr tablet 07/05/2022 active lisinopril (PRINIVIL,ZeSTRIL) 10 MG tablet Take 10 mg by mouth. 07/05/2022 active Famotidine 20mg/50ml Solution for Injection 12/08/2022 ac tive pioglitazone (ACTOS) 30 MG tablet Take 30 mg by mouth daily. 07/05/2022 active lisinopril (PRINIVIL,ZeSTRIL) 20 MG tablet 07/05/2022 active glucose blood test strip 07/05/2022 active metFORMIN (GLUCOPHAGE) 1000 MG tablet 07/05/2022 active Tamsulosin 12/08/2022 active methylPREDNISolone (MEDROL DOSEPAK) 4 MG tablet Take as directed. Be sure to take all the tablets in decreasing doses as stated in the pau 07/05/2022 active methocarbamol (ROBAXIN) 750 MG tablet Take 2 tablets (1,500 mg total) by mouth 3 (three) times a day as needed for muscle spasms. 07/05/2022 active famotidine (PEPCID) 20 MG tablet Take 40 mg by mouth daily. 07/05/2022 active tamsulosin (FLOMAX) 0.4 MG capsule Take 1 capsule (0.4 mg total) by mouth daily. 07/09/2022 active senna-docusate (SENNA-S) 8.6-50 MG Take 1-2 tablets by mouth nightly as needed for constipation. 07/05/2022 active naloxone (NARCAN) 4 mg/0.1 mL Liquid nasal spray device [place] contents (4mg) into one nostril once. May repeat every 2 to 3 minutes in alternating nostrils. Call 911 immediately after use. 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
== END 2024-04-14 13:41 | disposition home or self-care (01) ==
PROVIDERS: PCP Family Medicine; Visit Provider Urology
DX: C61 Malignant neoplasm of prostate (principal); Z19.1 Hormone sensitive malignancy status; N40.1 Benign prostatic hyperplasia with lower urinary tract symptoms; N13.8 Other obstructive and reflux uropathy

== ENCOUNTER → 2024-04-14 12:52 | Outpatient (BNVA) | payer MEDICARE, SELFPAY | PROVIDERS: PCP Family Medicine; Visit Provider Urology | DX: C61 Malignant neoplasm of prostate (principal); N40.1 Benign prostatic hyperplasia with lower urinary tract symptoms; N13.8 Other obstructive and reflux uropathy; Z19.1 Hormone sensitive malignancy status | CPT/HCPCS: 96402; 99212; J9217 ==

== ENCOUNTER 2024-05-02 06:03 | Day surgery (SDC) | payer MEDICARE, SELFPAY ==
--- NOTE | 2024-04-29 10:06 | HO.ANESPROP2 ---
Documented by User: Marisela Huff NP 04/29/24 10:07 HPI - Anesthesia Eval Consult details Narrative: 73yo M for Space OAR with visicoil placement Anesthesia Pre-Procedure Meds Is the patient on any of the following meds?: SGLT2 Inhib PMFSH Active Problems Active Problems: All Active Problems Hormone sensitive prostate cancer (Acute) Gross hematuria (Acute) Elevated PSA (Acute) BPH w urinary obs/LUTS (Acute) Past Medical History Medical History (Updated 04/29/24 @ 08:49 by Brianne Mcghee RN) Prostate cancer HTN (hypertension) GERD (gastroesophageal reflux disease) Diabetes High cholesterol Surgical History Surgical History (Updated 05/02/24 @ 06:21 by Sofi Ayala RN) History of hernia surgery History of laparoscopic cholecystectomy H/O shoulder surgery Social History Social History Are you a primary family day care provider to a significant other at home: No Do you presently have visiting nurse or other home services: No Patient Tobacco Use Status: Never used Tobacco Use of substances other than those prescribed or required for medical reasons: No Have you been hit, kicked, punched, or otherwise hurt by someone within the past year? If so, by whom?: No Are you DNR?: No Advance Directives: No Advance Directives Information Provided: No Advance Directives on File: No Recently lost weight without trying: No How much weight loss: Not applicable Eating poorly because of decreased appetite: No Nutrition screen score: 0 Nutrition Risks: No Nutritional Risk Poor oral hygiene: No Meds Allergies Allergy/AdvReac Type Severity Reaction Status Date / Time degarelix Allergy Mild rash Verified 05/02/24 06:21 Home Medications ?Medication ?Instructions ?Recorded ?Confirmed ?Last Taken ?Type atorvastatin 20 mg tablet 20 mg PO DAILY 05/06/22 05/02/24 Unknown History blood sugar diagnostic (FreeStyle #10 ea 05/06/22 05/02/24 Unknown History Lite Strips) famotidine 20 mg tablet 20 mg PO BID 05/06/22 05/02/24 Unknown History fenofibrate micronized 134 mg 134 mg PO DAILY 05/06/22 05/02/24 Unknown History capsule lisinopril 20 mg tablet 20 mg PO DAILY 05/06/22 05/02/24 05/01/24 History pantoprazole 40 mg tablet,delayed 40 mg PO BID 05/06/22 05/02/24 Unknown History release tamsulosin 0.4 mg capsule 0.4 mg PO DAILY 05/06/22 05/02/24 Unknown History empagliflozin 10 mg tablet 10 mg PO DAILY 07/08/23 05/02/24 04/28/24 History (Jardiance) sitagliptin phosphate 100 mg 100 mg PO QAM 05/02/24 05/02/24 04/28/24 History tablet (Januvia) Assessment and Plan Assessment Anesthesia Assessment: Chart Reviewed Documented by User: Pasha Pedroza MD 05/02/24 07:35 PMF Past Medical History Medical History (Updated 04/29/24 @ 08:49 by Brianne Mcghee RN) Prostate cancer HTN (hypertension) GERD (gastroesophageal reflux disease) Diabetes High cholesterol Family History Family history of problems with anesthesia: No Surgical History Surgical History (Updated 05/02/24 @ 06:21 by Sofi Ayala RN) History of hernia surgery History of laparoscopic cholecystectomy H/O shoulder surgery History of Problems with Anesthesia: No Social History Social History Are you a primary family day care provider to a significant other at home: No Do you presently have visiting nurse or other home services: No Patient Tobacco Use Status: Never used Tobacco Use of substances other than those prescribed or required for medical reasons: No Have you been hit, kicked, punched, or otherwise hurt by someone within the past year? If so, by whom?: No Are you DNR?: No Advance Directives: No Advance Directives Information Provided: No Advance Directives on File: No Recently lost weight without trying: No How much weight loss: Not applicable Eating poorly because of decreased appetite: No Nutrition screen score: 0 Nutrition Risks: No Nutritional Risk Poor oral hygiene: No Meds Allergies Allergy/AdvReac Type Severity Reaction Status Date / Time degarelix Allergy Mild rash Verified 05/02/24 06:21 Home Medications ?Medication ?Instructions ?Recorded ?Confirmed ?Last Taken ?Type atorvastatin 20 mg tablet 20 mg PO DAILY 05/06/22 05/02/24 Unknown History blood sugar diagnostic (FreeStyle #10 ea 05/06/22 05/02/24 Unknown History Lite Strips) famotidine 20 mg tablet 20 mg PO BID 05/06/22 05/02/24 Unknown History fenofibrate micronized 134 mg 134 mg PO DAILY 05/06/22 05/02/24 Unknown History capsule lisinopril 20 mg tablet 20 mg PO DAILY 05/06/22 05/02/24 05/01/24 History pantoprazole 40 mg tablet,delayed 40 mg PO BID 05/06/22 05/02/24 Unknown History release tamsulosin 0.4 mg capsule 0.4 mg PO DAILY 05/06/22 05/02/24 Unknown History empagliflozin 10 mg tablet 10 mg PO DAILY 07/08/23 05/02/24 04/28/24 History (Jardiance) sitagliptin phosphate 100 mg 100 mg PO QAM 05/02/24 05/02/24 04/28/24 History tablet (Januvia) Exam Airway Mallampati Class: II TM Dist: <=3cm Neck ROM: Full Loose/Missing/Broken Teeth: No Heart: ok Lungs: ok Assessment and Plan Assessment Anesthesia Assessment: Anesthesia Plan Discussed Final Anesthetic Review Family History of Problems with Anesthesia: No History of Problems with Anesthesia: No NPO: Yes ASA Class: II and III Final Preanesthetic Review: No Changes in Pt Med Stat, Meds/Allgs Chart Reviewed, Consent Obtained/Reviewed and Anes Risks/Benef Reviewed Patient Risk: Intermediate Procedure Risk: Low Anesthetic Plan Anesthetic Plan: GA and Agree w/ Assess. and Plan Disposition: Standard PACU
[2024-05-02 06:22] VITALS: BP 142/75; PULSE 76; RESP 16; TEMP 36.3; O2SAT 95; BMI 29.6
[2024-05-02 06:29] LABS: Glucose, Whole Blood 160 mg/dL (60-115)
[2024-05-02] MEDS: Lactated Ringers 1,000 ML 100 ML IVCONT (06:42)
--- NOTE | 2024-05-02 07:31 | P.HPSUR_ITS ---
Pre-Procedural Eval Section A - 24 Hr Update-Section A only Date of Service: 05/02/24 The patient is an INPATIENT: No Changes since office visit: No Cold of Flu in the past 2 weeks, No New Medical Problems, No Changes in Medication and No Patient answered all questions The patient has been examined within 24 hours of the surgical procedure. The History & Physical has been completed within 30 days and I have reviewed it.: Yes Section B - Complete if H&P > 30 days Chief Complaint: Malignant neoplasm of prostate Details of Present Illness: Space oar and visicoil placement Relevant Family History (Specify if Yes): No Relevant Social History: None Present Medications: see Short Stay Collaborative assessment Medical History: No relevant PMH History of Previous Operations: No relevant previous surgery Allergies: Allergies Allergy/AdvReac Type Severity Reaction Status Date / Time degarelix Allergy Mild rash Verified 05/02/24 06:21 Review of Systems Sugical H&P ROS: Negative: Constitution, Cardiovascular, Respiratory, Neurological, Psychiatric, Hem-Onc, Allergic/Immunologic, Gastrointestinal, Genitourinary, Musculoskeletal, Integumentary, Endocrine and Eye s/Ears/Nose/Throat Exam Surgical H&P Exam: Normal: HEENT, Normal: Heart, Normal: Lungs, Normal: Extremities, Normal: Abdomen, Normal: Skin and Normal: Neurological Plan Diagnosis/Plan: Unchanged I have reviewed the history and physical and performed a pertinent physical examination on my patient. No changes have occurred unless specified. Time Spent With Patient Time: Total time managing care of this patient today ____ minutes.
[2024-05-02] MEDS: levoFLOXacin 500 MG TABLET PO (07:35)
--- NOTE | 2024-05-02 08:10 | P.OP_ITS ---
Operative Note Operative Note Date of Service: 05/02/24 Narrative: Preoperative diagnosis: Prostate cancer Postoperative diagnosis: Prostate cancer Procedure: 1. Transrectal ultrasound-guided perineal visicoil marker seed placement 2. Transrectal ultrasound-guided perineal SpaceOAR gel placement Surgeon: Dr. Enrique Haskins Anesthetic: Sedation Indications for procedure: Prostate Cancer Procedure: After informed consent was verified, the patient was brought into the operating room and anesthesia was performed per protocol. The patient was placed in a modified dorsal lithotomy position. Gel was placed per rectum Ultrasound probe was placed per rectum. The prostate was visualized in sagittal and transverse dimensions. Positioning was optimized. Local anesthetic was infiltrated in the perineal area using 10 cc of lidocaine Visicoil seed markers were placed in a transperineal fashion using ultrasound g uidance 1 on the right - toward mid gland. 1 on the left at mid gland. The purpose is for target triangulation. The 2nd part of the procedure was placement of SpaceOAR gel to allow consolidation for radiation delivery. The kit was prepared on the backtable with assembly of the 2 part solution and syringe delivery system. The delivery needle was advanced bevel down in the midline under ultrasound guidance to the apex of the prostate. It was advanced in the plane the prostate from the rectum to the midpoint of the prostate. Location was determined using sagittal and transverse imaging. At the midpoint of the prostate 1 cc of saline was placed to confirm needle position. Further injection saline was placed to confirm spread toward the base of the prostate. Position was confirmed and needle confirmed to be free from tenting of the rectum. With the needle in the confirmed position 10 cc of gel mixture was injected. This was performed over a target time of 15-20 seconds to allow for adequate spread.. Good separation was seen of the rectum from the prostate space running in the midline from the base toward the apex of the prostate in the sagittal and transverse plane. Following completion of the procedure the probe was removed from the rectum. He tolerated the procedure well. He was extubated in the operating room and transferred in stable condition to the recovery area. Pathology none Drains none
[2024-05-02 08:15] VITALS: BP 94/51; PULSE 68; RESP 16; TEMP 36.4; O2SAT 92
[2024-05-02 08:20] VITALS: BP 104/64; PULSE 66; RESP 18; O2SAT 95
[2024-05-02 08:25] VITALS: BP 94/69; PULSE 75; RESP 18; O2SAT 94
[2024-05-02] MEDS: Acetaminophen 325 MG TABLET 975 MG PO (08:28)
[2024-05-02 08:30] VITALS: BP 103/70; PULSE 65; RESP 18; O2SAT 96
[2024-05-02 08:45] VITALS: BP 100/64; PULSE 62; RESP 18; TEMP 36.6; O2SAT 96
== END 2024-05-02 11:12 | disposition home or self-care (01) ==
PROVIDERS: PCP Family Medicine; Visit Provider Urology
PROC: (CPT 55874; principal; 2024-05-02 07:30)
DX: C61 Malignant neoplasm of prostate (principal); Z19.1 Hormone sensitive malignancy status; R97.20 Elevated prostate specific antigen [PSA]; R39.12 Poor urinary stream; Z79.899 Other long term (current) drug therapy; Z88.8 Allergy status to other drugs, medicaments and biological substances
CPT/HCPCS: 55874; 82947; A4648; C1889; J2003; J2405; J2704; J3010

== ENCOUNTER → 2024-05-02 06:03 | Outpatient (BNV) | payer MEDICARE, SELFPAY | PROVIDERS: PCP Family Medicine; Visit Provider Urology | DX: C61 Malignant neoplasm of prostate (principal) | CPT/HCPCS: 55874; 55876; 76872 ==

== ENCOUNTER 2024-07-28 14:10 | Outpatient (AMB) | payer MEDICARE, SELFPAY ==
--- NOTE | 2024-07-28 14:11 | MHC.OFFVIS ---
Intake Visit Reasons: 3M follow up Intake Note: Patient is present for 3M F/U Urology Medication:FINASTERIDE,RELUGOLIX Antibiotic Allergy:NONE Blood Thinner:NONE Mixing Picker Tender Required: No Allergies degarelix Allergy (Mild, Verified 07/28/24 14:12) rash HPI Comments Details: Joshua is a pleasant male. He is a patient of . He is seen for the following urologic conditions - Elevated PSA - Lower Urinary Tract Symptoms - Prostate Cancer Telemedicine Evaluation 15 min Consultation [facility] Saira Video Tolerating current therapy well Has 1 more week left of external beam radiation Three-month follow-up with repeat GnRH 04/14/24 GnRH - Given high-grade nature of disease use of ARB-I during radiation may provide benefit - patient is on finasteride PSA 11/01 5.1, 02/01 5.7 PCP T calculator would suggest 5-10% risk of high-grade prostate cancer based on free and total PSA MRI performed shows 3.6 cm lesion with contrast enhancement at left apex prostate PiRADS 5 04/03 PET-CT 68Ga-PSMA (ILLUCCIX) PET/CT - There is a focus of low intensity increased PSMA activity in the right anterolateral peripheral zone of the prostate apex, as described above, which is suspicious for prostate malignancy Prostate Cancer - 03/03 - Grade Group 4 - Sarah 8 External beam radiation - [place] - Dr Kaye Histologic type: Adenocarcinoma Histologic grade: Sarah score: 4+4=8 % of pattern 4: 100% % of pattern 5: Not identified Grade group: 4 Tumor quantitation: Number cores positive: 5 Total number of cores: 12 % of tissue involved: See above for details Periprostatic fat inv.: Not identified Seminal vesicle inv.: Not identified Perineural inv.: Not identified LVI: Not identified Lower urinary tract symptoms Progressive rise in PSA and weakness of stream CALEB 2+ normal Prior evaluation for gross hematuria February 202002/27 CT urogram had indicated enlarged prostate. Cystoscopy confirmed finding with no abnormality of bladder but enlarged prostate Slowly rising PSA Prostate biopsy had been suggested by prior urologist Laboratory testing - 02/27 3.0, 11/29 4.5 - 03/01 ExoDx score 25 - with is over suggested cutoff of 20 however is still only indicative of relative risk - PSA on finasteride 05/01 2.4, 10/31 2.7, 06/02 4.4, 07/04 4.4 Concurrent disease include diabetes PFSH Medical History (Updated 04/29/24 @ 08:49 by Brianne Mcghee RN) Prostate cancer HTN (hypertension) GERD (gastroesophageal reflux disease) Diabetes High cholesterol Surgical History (Updated 05/02/24 @ 06:21 by Sofi Ayala RN) History of hernia surgery History of laparoscopic cholecystectomy H/O shoulder surgery Social History Are you a primary health care law specialist to a significant other at home: No Do you presently have visiting nurse or other home services: No Patient Tobacco Use Status: Never used Tobacco Review of Systems Const All systems reviewed & are unremarkable except as noted in HPI and below Reports no additional complaints Resp Reports no additional complaints GI Reports no additional complaints Reports as per HPI Musc Reports no additional complaints Physical Exam Telemedicine evaluation Appropriate responses Regular breathing rate and rhythm HEENT Head: Yes normal to inspection Ears: hearing grossly normal bilaterally Eyes General: appearance normal, both eyes and all related structures Neck Neck: Yes normal visual inspection Chest Chest palpation & inspection: normal inspection of the chest Resp Effort & Inspection: normal respiratory effort and able to speak in complete sentences Telehealth Telehealth Telehealth Platform: [facility] Location of provider rendering services: practice address Location of patient: address on file Patient Identification confirmed using: Name, : Yes Telehealth method: video Patient verbally consented to treatment: Yes Patient verbally consented to billing insurance company: Yes Patient informed of any privacy concerns related to visit: Yes Minutes spent on Phone/Video with Pt.: 15 Assessment & Plan Assessment & Plan (1) Hormone sensitive prostate cancer: Code(s): C61 - Malignant neoplasm of prostate; Z19.1 - Hormone sensitive malignancy status Category: Medical Plan Three-month follow-up lab work GnRH injection Orders: Orders Prostate Specific Antigen 3 Months C61 - Malignant neoplasm of prostate, Z19.1 - Hormone sensitive malignancy status Testosterone, Total 3 Months C61 - Malignant neoplasm of prostate, Z19.1 - Hormone sensitive malignancy status Medications: Discontinued relugolix Discontinued Reason: Patient Completed Course 120 mg PO DAILY 30 days 30 tabs 5RF prostate cancer C61 - Malignant neoplasm of prostate Patient Instructions: This note is constructed using voice recognition software. While every effort has been made to ensure accuracy vp corporate development errors may have been included. Imaging studies, laboratory and physical exam results were discussed and reviewed in detail. No major barriers to patient understanding were identified. An opportunity to ask questions regarding the treatment plan was provided. All questions were answered. The patient expressed understanding and agreement with the above treatment plan. The patient is aware they should contact our office by phone for worsening of their current condition or the appearance of new urologic symptoms. Compliance is encouraged with any medications and followup testing that is ordered. It is a privilege to participate in the urologic care of your patient. If you have any questions or concerns regarding treatment for the above conditions, or other urologic issues, please do not hesitate to contact me. The office telephone contact is [phone]. Sincerely, Dr Enrique Haskins MD, [facility] - Urology Compassionate Specialist Care for the Genitourinary System Coding Level of Care Code Tele Est Pt Level 3 (67102) Complex EM visit Add On G2211 Diagnoses Hormone sensitive prostate cancer C61; Z19.1
== END 2024-07-28 14:40 | disposition home or self-care (01) ==
LOC: HO.HUSH 14:10
PROVIDERS: PCP Family Medicine; Visit Provider Urology
DX: C61 Malignant neoplasm of prostate (principal); Z19.1 Hormone sensitive malignancy status
CPT/HCPCS: 99213; G2211

== ENCOUNTER 2024-10-25 11:57 | Outpatient (AMB) | payer MEDICARE, SELFPAY ==
--- NOTE | 2024-10-25 12:04 | MHC.OFFVIS ---
Intake Visit Reasons: lab f/u Intake Note: Patient is present for LAB F/U Urology Medication:FINASTERIDE Antibiotic Allergy:NONE Blood Thinner:NONE Railroad Dining Car Steward/Stewardess Required: No Allergies degarelix Allergy (Mild, Verified 10/25/24 12:11) rash HPI Comments Details: Joshua is a pleasant male. He is a patient of . He is seen for the following urologic conditions - Elevated PSA - Lower Urinary Tract Symptoms - Prostate Cancer Telemedicine Evaluation 15 min Consultation [email or web address] Saira Video Lab work stable Plan for 2nd GnRH injection Continue finasteride Has been waking at night however tamsulosin makes him dizzy Trial alfuzosin 4 month follow-up lab work 11/02 PSA 0.1 T 24 04/14/24 GnRH - Given high-grade nature of disease use of ARB-I during radiation may provide benefit - patient is on finasteride PSA 11/01 5.1, 02/01 5.7 PCP T calculator would suggest 5-10% risk of high-grade prostate cancer based on free and total PSA MRI performed shows 3.6 cm lesion with contrast enhancement at left apex prostate PiRADS 5 04/03 PET-CT 68Ga-PSMA (ILLUCCIX) PET/CT - There is a focus of low intensity increased PSMA activity in the right anterolateral peripheral zone of the prostate apex, as described above, which is suspicious for prostate malignancy Prostate Cancer - 03/03 - Grade Group 4 - Sarah 8 External beam radiation - [place] - Dr Kaye - August 2024 Histologic type: Adenocarcinoma Histologic grade: Sarah score: 4+4=8 % of pattern 4: 100% % of pattern 5: Not identified Grade group: 4 Tumor quantitation: Number cores positive: 5 Total number of cores: 12 % of tissue involved: See above for details Periprostatic fat inv.: Not identified Seminal vesicle inv.: Not identified Perineural inv.: Not identified LVI: Not identified Lower urinary tract symptoms Progressive rise in PSA and weakness of stream CALEB 2+ normal Prior evaluation for gross hematuria February 202002/27 CT urogram had indicated enlarged prostate. Cystoscopy confirmed finding with no abnormality of bladder but enlarged prostate Slowly rising PSA Prostate biopsy had been suggested by prior urologist Laboratory testing - 02/27 3.0, 11/29 4.5 - 03/01 ExoDx score 25 - with is over suggested cutoff of 20 however is still only indicative of relative risk - PSA on finasteride 05/01 2.4, 10/31 2.7, 06/02 4.4, 07/04 4.4 Concurrent disease include diabetes PFSH Medical History (Updated 04/29/24 @ 08:49 by Brianne Mcghee, STEPHANIE) Prostate cancer HTN (hypertension) GERD (gastroesophageal reflux disease) Diabetes High cholesterol Surgical History (Updated 05/02/24 @ 06:21 by Sofi Bauer RN) History of hernia surgery History of laparoscopic cholecystectomy H/O shoulder surgery Social History Are you a primary specialist wound care to a significant other at home: No Do you presently have visiting nurse or other home services: No Patient Tobacco Use Status: Never used Tobacco Review of Systems Const Denies chills and Denies fever(s) Card Reports no additional complaints and Denies syncope Resp Denies cough GI Denies abdominal pain and Denies heartburn Reports as per HPI and Denies change in libido Neuro Denies syncope Psych Denies change in libido Endo Denies change in libido Physical Exam Const General: cooperative, healthy appearing, comfortable and no acute distress Orientation/consciousness: patient oriented x3 HEENT Face and sinus: Yes normal facial exam Mouth: moist mucous membranes Neck Neck: Yes normal visual inspection, Yes full ROM and Yes trachea midline Chest Chest palpation & inspection: normal inspection of the chest Resp Effort & Inspection: normal respiratory effort, able to speak in complete sentences and no respiratory distress GI Inspection: Yes normal to inspection Back/Spine/Pelvis Cervical Spine: normal cervical lordosis Thoracic/Lumbar Spine: thoracic and lumbar spine normal to inspection Skin General skin exam: no rashes or lesions noted Neuro General: patient oriented x3, gait normal, tone normal and moves all extremities Extrem General: Yes normal to inspection and Yes capillary refill normal Assessment & Plan Assessment & Plan (1) Hormone sensitive prostate cancer: Code(s): C61 - Malignant neoplasm of prostate; Z19.1 - Hormone sensitive malignancy status Category: Medical Plan Three-week follow-up nursing GnRH injection Four month follow-up PSA and testosterone Orders: Orders Testosterone, Total 4 Months C61 - Malignant neoplasm of prostate, Z19.1 - Hormone sensitive malignancy status Prostate Specific Antigen 4 Months C61 - Malignant neoplasm of prostate, Z19.1 - Hormone sensitive malignancy status Medications: New alfuzosin ER Take before bedtime 10 mg PO BEDTIME 30 days 30 tabs 1RF N32.0 - Bladder-neck obstruction, N40.1 - Benign prostatic hyperplasia with lower urinary tract symptoms, R33.9 - Retention of urine, unspecified, R35.1 - Nocturia, R39.12 - Poor urinary stream Refilled finasteride 5 mg PO DAILY 90 days 90 tabs 1RF N13.8 - Other obstructive and reflux uropathy, N40.1 - Benign prostatic hyperplasia with lower urinary tract symptoms, R33.9 - Retention of urine, unspecified Patient Instructions: This note is constructed using voice recognition software. While every effort has been made to ensure accuracy night clerk errors may have been included. Imaging studies, laboratory and physical exam results were discussed and reviewed in detail. No major barriers to patient understanding were identified. An opportunity to ask questions regarding the treatment plan was provided. All questions were answered. The patient expressed understanding and agreement with the above treatment plan. The patient is aware they should contact our office by phone for worsening of their current condition or the appearance of new urologic symptoms. Compliance is encouraged with any medications and followup testing that is ordered. It is a privilege to participate in the urologic care of your patient. If you have any questions or concerns regarding treatment for the above conditions, or other urologic issues, please do not hesitate to contact me. The office telephone contact is [phone]. Sincerely, Dr Enrique Haskins MD, [facility] - Urology Compassionate Specialist Care for the Genitourinary System Coding Level of Care Code Tele Est Pt Level 4 (69718) Complex EM visit Add On G2211 Diagnoses Hormone sensitive prostate cancer C61; Z19.1
--- OUTSIDE RECORDS SUMMARY | 2024-10-25 13:40 | XMS_ITS | Encounter Summary ---
Author Organization [facility] Address [address] [place] [address] Care Team Providers Care Beater Tender Name Role Phone Shane Ho MD Primary Care Provider [phone] Reason for Visit * Reason Comments Medical Complaint Appointment Reschedule cysto Encounter Details Date Type Department Care Team (Late st Contact Info) Description 09/13/2021 Telephone [facility] Urologic Surgery [place] [address] [place] [address] Keo Hemphill MD [address] [place] [id number] Medical Complaint; Appointment (Reschedule cysto ) Social History Tobacco Use Types Packs/Day Years Used Date Smoking Tobacco: Never Smokeless Tobacco: Never Alcohol Use Standard Drinks/Week Comments Not Currently 0 (1 standard drink = 0.6 oz pur e alcohol) Sex and Gender Information Value Date Recorded Sex Assigned at Not on file Legal Sex Male 5:10 PM EDT Gender Identity Not on file Sexual Orientation Not on file COVID-19 Exposure Response Date Recorded In the last month, have you been in contact with someone who was confirmed or suspected to have Coronavirus / COVID-19? No / Unsure 08/19/2021 10:21 AM EDT documented as of this encounter Miscellaneous Notes * Telephone Encounter - Jayda Reyes - 10/09/2021 11:42 AM EDT Pt is going to keep appt on 10/16 at 9 am * Telephone Encounter - Shane Le RN - 09/13/2021 2:55 PM EDT Triage: Gross hematuria began on 09/10/21. Color of the urine is reddened again. Cysto scheduled for October 16. Patient will increase hydration. Patient advised to keep the office informed regarding the gross hematuria as no blood clots are present at this time. Patient advised to contact their back doctor to address their herniated disc issues. Should any of the following be experienced, pt should contact the office during normal business hours or go to the emergency room: n/v/fever/chills/intolerable pain/abdominal distention/inability to void. documented in this encounter Plan of Treatment Not on file documented as of this encounter Visit Diagnoses Not on filedocumented in this encounter Care Teams Beater Tender Relationship Specialty Start Date End Date Shane Ho MD PCP - General Internal Medicine 01/03/19 documented as of this encounter
== END 2024-10-25 12:29 | disposition home or self-care (01) ==
LOC: HO.HUSH 11:57
PROVIDERS: PCP Family Medicine; Visit Provider Urology
DX: C61 Malignant neoplasm of prostate (principal); Z19.1 Hormone sensitive malignancy status
CPT/HCPCS: 99214; G2211

== ENCOUNTER → 2024-10-25 11:57 | Outpatient (BNVA) | payer MEDICARE, SELFPAY | PROVIDERS: PCP Family Medicine; Visit Provider Urology | DX: Z13.89 Encounter for screening for other disorder (principal) ==

== ENCOUNTER 2024-11-15 14:03 | Outpatient (AMB) | payer MEDICARE, SELFPAY ==
--- NOTE | 2024-11-15 14:13 | AM.OFFVISNUR ---
Intake Visit Reasons: [facility] Allergies degarelix Allergy (Mild, Verified 10/25/24 12:11) rash Office Meds Eligard (6 month) 45 mg (6 month) subcutaneous syringe Performing Provider: Enrique Haskins MD [facility] Administered by: Yani Cooper RN on 11/15/24 14:13 Dose Route Admin Location Dispensed Lot Number Expiration Date [facility] Tube Maker 45 mg subcut Left upper arm 45 mg [id number] 06/30/25 18672-241-97 [employer]. Total Dispensed Waste 45 mg 0 % Assessment & Plan Assessment & Plan Orders: Orders AMB Leuprolide Injection - Practice Supplied Today C61 - Malignant neoplasm of prostate, Z19.1 - Hormone sensitive malignancy status Coding
--- OUTSIDE RECORDS SUMMARY | 2024-11-15 14:53 | XMS_ITS | Encounter Summary ---
Author Organization [facility] Address [address] [place] [address] Care Team Providers Care Route Salesman And Driver Name Role Phone Shane Ho MD Primary Care Provider [phone] Reason for Visit * Reason Comments Medical Complaint Appointment Reschedule cysto Encounter Details Date Type Department Care Team (Late st Contact Info) Description 09/13/2021 Telephone [facility] Urologic Surgery [place] [address] [place] [address] Keo Hemphill MD [address] [place] [id number] Medical Complaint; Appointment (Reschedule cysto ) Social [...] documented in this encounter Plan of Treatment Upcoming Encounters Date Type Department Care Team (Late st Contact Info) Description 12/01/2024 7:45 AM EDT Appointment [facility] [address] [phone] Saad Dyer, [address] [place] [address] 12/01/2024 8:00 AM EDT Appointment [facility] [address] [address] Saad Dyer, [address] [place], [place] [address] documented as of this encounter Visit Diagnoses Not on filedocumented in this encounter Care Teams Route Salesman And Driver Relationship Specialty Start Date End Date Shane Ho MD PCP - General Internal Medicine 01/03/19 documented as of this encounter
--- OUTSIDE RECORDS SUMMARY | 2024-11-15 14:53 | XMS_ITS | Clinical Summary ---
Author Organization [facility] Address [address] [place] [address] Care Team Providers Care Embedded Software Design Engineer Name Role Phone Ayad Pulido MD Primary Care Provider [phone] Medications Esomeprazole Magnesium (NexIUM) [address] capsule 180 0 02/07/2015 Active amLODIPine Besylate (NORVASC) 5 MG tablet 100 0 03/06/2015 Active predniSONE (DELTASONE) 10 MG tablet 20 0 08/06/2015 Active levoFLOXacin (LEVAQUIN) 750 MG tablet 7 0 08/06/2015 Active Atorvastatin Calcium (LIPITOR) 20 MG tablet 100 0 09/25/2015 Active metFORMIN ER (GLUCOPHAGE-XR) 500 MG 24 hr tablet 400 0 10/19/2015 Active Lisinopril (PRINIVIL,ZESTRIL) 20 MG tablet 200 0 10/19/2015 Active Amoxicillin (AMOXIL) 250 MG capsule 21 0 10/31/2015 Active Glucose Blood (FREESTYLE LITE) test strip 100 0 11/02/2015 Active Pantoprazole Sodium (PROTONIX) 40 MG EC tablet 180 0 11/28/2015 Active Fenofibrate Micronized (LOFIBRA) 134 MG capsule 100 0 01/09/2016 Active Active Problems Problem Noted Date Diagnosed Date Asymmetrical hearing loss 01/18/2016 Sensorineural hearing loss (SNHL), bilateral 01/2016 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 Family History Medical History Relation Name Comments Cancer (?Type) Other malignant brad plasm : Other Hypertension Other hypertension : Other Relation Name Status Comments Other Social History Tobacco Use Types Packs/Day Years Used Date Smoking Tobacco: Never Assessed Comments:Smoking Status:Soo reyna a smoker Sex and Gender Information Value Date Recorded Sex Assigned at Not on file Legal Sex Male 6:09 PM EDT Gender Identity Not on file Sexual Orientation Not on file Last Filed Vital Signs Vital Sign Reading Time Taken Comments Blood Pressure 128/85 01/18/2016 10:56 AM EDT Pulse 80 01/18/2016 10:56 AM EDT Temperature - - Respiratory Rate - - Oxygen Saturation - - Inhaled Oxygen Concentration - - Weight 90.7 kg (200 lb 0.1 oz) 01/18/2016 10:56 AM EDT Height 175.3 cm (5' 9 ) 01/18/2016 10:56 AM EDT Body Mass Index 29.54 01/18/2016 10:56 AM EDT Plan of Treatment Health Maintenance Due Date Last Done Comments Hepatitis C Screening 1950 DTaP/Tdap/Td (1 - Tdap) 1970 Pneumococcal 50+ years (1 of 1 - PCV) 2002 Zoster (Shingrix) (1 of 2) 2002 COVID-19 Vaccine ( - 2023-2 5 season) 2024 Influenza (#1) 2025 RSV (1 - 1-dose 75+ series) 08/13/2027 Abdominal Aorta Imaging Discontinued HPV Vaccine Aged Out No longer eligi ble based on patient's age to complete this topic Hep A Aged Out No longer eligi ble based on patient's age to complete this topic Hep B Aged Out No longer eligi ble based on patient's age to complete this topic Hib Aged Out No longer eligi ble based on patient's age to complete this topic Meningococcal ACWY Aged Out No longer eligible based on patient's age to complete this topic Zoster (Zostavax) Discontinued Care Teams Embedded Software Design Engineer Relationship Specialty Start Date End Date Ayad Pulido MD [address] [place] [address] PCP - General 12/15/22
--- OUTSIDE RECORDS SUMMARY | 2024-11-15 14:53 | XMS_ITS ---
Author Name [facility] Organization Unknown Results Test Name/Text Value Interpretation Date Range Source GFRE 61.0 Normal 11/07/2024 60 - [facility] GLUCOSE 133.0 mg/dL Above high normal 11/07/2024 74 - 106 [facility] AST (SGOT) 25.0 U/L Normal 11/07/2024 0 - 34 [facility] GLOBULIN 2.5 g/dL Normal 11/07/2024 2.2 - 3.5 [facility] CHLORIDE 102.0 mmol/L Normal 11/07/2024 98 - 107 [facility] BILIRUBIN,TOTAL 0.7 mg/dL Normal 11/07/2024 0.3 - 1.2 [facility] CO2 25.0 mmol/L Normal 11/07/2024 20 - 31 [facility] BUN/CREAT.RATIO 21.0 Normal 11/07/2024 [facility] ALT (SGPT) 57.0 U/L Above high normal 11/07/2024 10 - 49 [facility] SODIUM 136.0 mmol/L Normal 11/07/2024 136 - 145 [facility] MH CALCIUM 9.9 mg/dL Normal 11/07/2024 8.7 - 10.4 [facility] A/G RATIO 1.8 g/dL Normal 11/07/2024 [facility] POTASSIUM SERUM 4.6 mmol/L Normal 11/07/2024 3.5 - 5.1 [facility] ALKALINE PHOSPHATASE 59.0 U/L Normal 11/07/2024 45 - 129 [facility] CREATININE 1.24 mg/dL Normal 11/07/2024 0.7 - 1.3 [facility] PROTEIN, TOTAL 6.9 g/dL Normal 11/07/2024 5.7 - 8.2 [facility] 4.4 g/dL Normal 11/07/2024 3.2 - 4.8 [facility] BUN 26.0 mg/dL Above high normal 11/07/2024 9 - 23 [facility] PATIENT FASTING? YES Normal 11/07/2024 [facility] TESTOSTERONE MALE 24.41 ng/dL Below low normal 10/14/2024 35.92 - 669.58 [facility] PROSTATE SPECIFIC ANTIGEN 0.09 ng/mL Normal 10/14/2024 0 - 4 [facility] CALCIUM 10.4 mg/dL Normal 09/27/2024 8.7 - 10.4 [facility] CREATININE 1.27 mg/dL Normal 09/27/2024 0.7 - 1.3 [facility] BILIRUBIN,TOTAL 0.5 mg/dL Normal 09/27/2024 0.3 - 1.2 [facility] CO2 27.0 mmol/L Normal 09/27/2024 20 - 31 [facility] H BUN 18.0 mg/dL Normal 09/27/2024 9 - 23 [facility] GLOBULIN 2.7 g/dL Normal 09/27/2024 2.2 - 3.5 [facility] SODIUM 137.0 mmol/L Normal 09/27/2024 136 - 145 [facility] POTASSIUM SERUM 4.9 mmol/L Normal 09/27/2024 3.5 - 5.1 [facility] ALKALINE PHOSPHATASE 56.0 U/L Normal 09/27/2024 45 - 129 [facility] ALT (SGPT) 55.0 U/L Above high normal 09/27/2024 10 - 49 [facility] GLUCOSE 130.0 mg/dL Above high normal 09/27/2024 74 - 106 [facility] AST (SGOT) 42.0 U/L Above high normal 09/27/2024 0 - 34 [facility] ALBUMIN 4.6 g/dL Normal 09/27/2024 3.2 - 4.8 [facility] CHLORIDE 106.0 mmol/L Normal 09/27/2024 98 - 107 [facility] PROTEIN, TOTAL 7.3 g/dL Normal 09/27/2024 5.7 - 8.2 [facility] BUN/CREAT.RATIO 14.2 Normal 09/27/2024 [facility] A/G RATIO 1.7 g/dL Normal 09/27/2024 [facility] PATIENT FASTING? YES Normal 09/27/2024 [facility] GFRE 59.0 Below low normal 09/27/2024 60 - [facility] GLYCOHEMOGLOBIN (A1C) 6.3 % Above high normal 08/08/2024 4 - 5.6 [facility] 51.0 U/L Above high normal 08/08/2024 10 - 49 [facility] CHLORIDE 105.0 mmol/L Normal 08/08/2024 98 - 107 [facility] GLUCOSE 135.0 mg/dL Above high normal 08/08/2024 74 - 106 [facility] POTASSIUM SERUM 4.3 mmol/L Normal 08/08/2024 3.5 - 5.1 CT [facility] GLOBULIN 2.4 g/dL Normal 08/08/2024 2.2 - 3.5 [facility] SODIUM 139.0 mmol/L Normal 08/08/2024 136 - [facility] BILIRUBIN,TOTAL 0.4 mg/dL Normal 08/08/2024 0.3 - 1.2 [facility] A/G RATIO 1.8 g/dL Normal 08/08/2024 [facility] ALKALINE PHOSPHATASE 48.0 U/L Normal 08/08/2024 45 - 129 [facility] AST (SGOT) 37.0 U/L Above high normal 08/08/2024 0 - 34 [facility] PROTEIN, TOTAL 6.8 g/dL Normal 08/08/2024 5.7 - 8.2 [facility] BUN 20.0 mg/dL Normal 08/08/2024 9 - 23 [facility] CALCIUM 10.0 mg/dL Normal 08/08/2024 8.7 - 10.4 [facility] H CO2 26.0 mmol/L Normal 08/08/2024 20 - 31 [facility] H CREATININE 1.31 mg/dL Above high normal 08/08/2024 0.7 - 1.3 [facility] BUN/CREAT.RATIO 15.3 Normal 08/08/2024 [facility] 4.4 g/dL Normal 08/08/2024 3.2 - 4.8 [facility] PATIENT FASTING? YES Normal 08/08/2024 [facility] PROSTATE SPECIFIC ANTIGEN 0.1 ng/mL Normal 08/08/2024 0 - 4 [facility] T4 FREE 0.96 ng/dL Normal 08/08/2024 0.89 - 1.76 [facility] VITAMIN D (25-HYDROXY) 41.0 ng/mL Normal 08/08/2024 30 - 100 [facility] LDL DIRECT MEASUREMENT 94.0 mg/dL Normal 08/08/2024 - 99 [facility] MAGNESIUM 1.91 mg/dL Normal 08/08/2024 1.6 - 2.6 [facility] URIC ACID 4.7 mg/dL Normal 08/08/2024 3.7 - 9.2 [facility] TSH 1.71 uIU/mL Normal 08/08/2024 0.55 - 4.78 [facility] MMH GFRE 57.0 Below low normal 08/08/2024 60 - [facility] HDL 42.0 mg/dL Normal 08/08/2024 40 - 60 [facility] LDL 79.0 mg/dL Normal 08/08/2024 - 160 [facility] CHOLESTEROL 155.0 mg/dL Normal 08/08/2024 - 200 [facility] TRIGLYCERIDE 172.0 mg/dL Above high normal 08/08/2024 - 150 [facility] HGB 13.7 g/dL Normal 08/08/2024 13.5 - 18 [facility] ABSOLUTE EOS 0.2 K/uL Normal 08/08/2024 0 - 0.7 [facility] MONOCYTES 13.0 % Above high normal 08/08/2024 0 - 12 C [facility] RDW 14.8 % Above high normal 08/08/2024 11.1 - 13.3 [facility] EOSINOPHILS 4.0 % Normal 08/08/2024 0 - 6 [facility] NUCLEATED RBC 0.0 % Normal 08/08/2024 0 - 0.2 [facility] MMH RBC 4.45 M/uL Normal 08/08/2024 4.3 - 6 [facility] MPV 10.0 fL Normal 08/08/2024 8 - 12 [facility] ABSOLUTE BASO 0.0 K/uL Normal 08/08/2024 0 - 0.2 [facility] MMH ABSOLUTE GRANULOCYTES 3.1 K/uL Normal 08/08/2024 2.2 - 7 .3 [facility] MCH 31.0 PG Normal 08/08/2024 27 - 34 [facility] BASOPHILS 1.0 % Normal 08/08/2024 0 - 2 [facility] ABSOLUTE LYMPHS 0.6 K/uL Below low normal 08/08/2024 1.5 - 4.9 [facility] GRANULOCYTES 69.0 % Normal 08/08/2024 23 - 78 [facility] MH ABSOLUTE MONOS 0.6 K/uL Normal 08/08/2024 0.2 - 1.5 [facility] IMMATURE GRANULOCYTES 1.0 % Above high normal 08/08/2024 0 - 0.45 [facility] PLATELET COUNT 197.0 K/uL Normal 08/08/2024 150 - 480 [facility] LYMPHS 13.0 % Below low normal 08/08/2024 16 - 50 [facility] HCT 41.8 % Normal 08/08/2024 40 - 52 [facility] MCV 94.0 fL Normal 08/08/2024 83 - 102 [facility] WBC 4.4 K/uL Normal 08/08/2024 3.7 - 10.3 [facility] ABSOLUTE IMMATURE GRANULOCYTES 0.0 K/uL Normal 08/08/2024 0 - 0.3 [facility] ABSOLUTE NUCLEATED RBC 0.0 K/uL Normal 08/08/2024 0 - 0. 012 [facility] MCHC 32.8 g/dL Normal 08/08/2024 31 - 36 [facility] GLYCOHEMOGLOBIN (A1C) 7.2 % Above high normal 05/13/2024 4 - 5.6 [facility] POTASSIUM, PLASMA 4.3 mmol/L Normal 02/15/2024 3.5 - 5.1 [facility] GLYCOHEMOGLOBIN (A1C) 7.3 % Above high normal 02/02/2024 4 - 5.6 [facility] VITAMIN D (25-HYDROXY) 54.2 ng/mL Normal 02/02/2024 30 - 100 [facility] MAGNESIUM 2.2 mg/dL Normal 02/02/2024 1.8 - 2.4 [facility] T4 FREE 0.89 ng/dL Normal 02/02/2024 0.6 - 1.38 [facility] H GFRE 61.0 Normal 02/02/2024 60 - [facility] URIC ACID 4.5 mg/dL Normal 02/02/2024 3.5 - 7.2 [facility] BUN 20.0 mg/dL Above high normal 02/02/2024 7 - 18 [facility] GLOBULIN 3.2 g/dL Normal 02/02/2024 2.4 - 4.2 [facility] CHLORIDE 105.0 mmol/L Normal 02/02/2024 98 - 107 [facility] SODIUM 138.0 mmol/L Normal 02/02/2024 136 - 145 [facility] CREATININE 1.25 mg/dL Normal 02/02/2024 0.55 - 1.3 [facility] ALT (SGPT) 48.0 U/L Normal 02/02/2024 12 - 78 [facility] PROTEIN, TOTAL 7.0 g/dL Normal 02/02/2024 6.4 - 8.2 [facility] BUN/CREAT.RATIO 16.0 Normal 02/02/2024 CTP MM CO2 27.0 mmol/L Normal 02/02/2024 21 - 32 [facility] CALCIUM 9.6 mg/dL Normal 02/02/2024 8.5 - 10.1 [facility] ALKALINE PHOSPHATASE 46.0 U/L Below low normal 02/02/2024 5 0 - 136 [facility] GLUCOSE 139.0 mg/dL Above high normal 02/02/2024 74 - 100 [facility] POTASSIUM SERUM 5.3 mmol/L Above high normal 02/02/2024 3.5 - 5.1 [facility] A/G RATIO 1.2 g/dL Normal 02/02/2024 [facility] AST (SGOT) 23.0 U/L Normal 02/02/2024 15 - 37 [facility] BILIRUBIN,TOTAL 0.6 mg/dL Normal 02/02/2024 0.2 - 1 [facility] ALBUMIN 3.8 g/dL Normal 02/02/2024 3.4 - 5 [facility] PATIENT FASTING? YES Normal 02/02/2024 CT [facility] TSH 1.15 uIU/mL Normal 02/02/2024 0.35 - 4.5 [facility] LDL DIRECT MEASUREMENT 66.0 mg/dL Normal 02/02/2024 - 160 [facility] TRIGLYCERIDE 84.0 mg/dL Normal 02/02/2024 - 150 [facility] MMH LDL 59.0 Normal 02/02/2024 0 - 129 [facility] CHOLESTEROL 126.0 mg/dL Normal 02/02/2024 - 200 [facility] MMH HDL 50.0 mg/dL Normal 02/02/2024 - [facility] PROSTATE SPECIFIC ANTIGEN 5.56 ng/mL Normal 02/02/2024 0 - 6.5 [facility] NUCLEATED RBC 0.0 % Normal 02/02/2024 0 - 0.2 [facility]H ABSOLUTE EOS 0.2 K/uL Normal 02/02/2024 0 - 0.7 [facility] HGB 14.4 g/dL Normal 02/02/2024 13.5 - 18 [facility] GRANULOCYTES 59.0 % Normal 02/02/2024 23 - 78 [facility] MPV 10.0 fL Normal 02/02/2024 8 - 12 [facility] ABSOLUTE NUCLEATED RBC 0.0 K/uL Normal 02/02/2024 0 - 0. 012 [facility] MCH 29.0 PG Normal 02/02/2024 27 - 34 [facility] MCV 91.0 fL Normal 02/02/2024 83 - 102 [facility] PLATELET COUNT 249.0 K/uL Normal 02/02/2024 150 - 480 [facility] LYMPHS 29.0 % Normal 02/02/2024 16 - 50 [facility] ABSOLUTE LYMPHS 2.2 K/uL Normal 02/02/2024 1.5 - 4.9 [facility]P [facility] EOSINOPHILS 3.0 % Normal 02/02/2024 0 - 6 [facility] H ABSOLUTE GRANULOCYTES 4.4 K/uL Normal 02/02/2024 2.2 - 7 .3 [facility] ABSOLUTE BASO 0.1 K/uL Normal 02/02/2024 0 - 0.2 [facility] MMH RBC 5.02 M/uL Normal 02/02/2024 4.3 - 6 [facility] MONOCYTES 9.0 % Normal 02/02/2024 0 - 12 [facility] BASOPHILS 1.0 % Normal 02/02/2024 0 - 2 [facility] ABSOLUTE IMMATURE GRANULOCYTES 0.0 K/uL Normal 02/02/2024 0 - 0.3 [facility] MCHC 31.6 g/dL Normal 02/02/2024 31 - 36 [facility] ABSOLUTE MONOS 0.6 K/uL Normal 02/02/2024 0.2 - 1.5 [facility] IMMATURE GRANULOCYTES 0.0 % Normal 02/02/2024 0 - 0.4 5 [facility] WBC 7.5 K/uL Normal 02/02/2024 3.7 - 10.3 [facility] HCT 45.6 % Normal 02/02/2024 40 - 52 [facility] RDW 14.6 % Above high normal 02/02/2024 11.1 - 13.3 [facility] PSA, FREE 1.07 ng/mL Normal 10/26/2023 - [facility] PSA, TOTAL 5.1 ng/mL Critically abnormal 10/26/2023 - [facility] PSA, % FREE 21.0 % Critically abnormal 10/26/2023 25 - [facility] GLYCOHEMOGLOBIN (A1C) 7.3 % Above high normal 10/21/2023 4 - 5.6 [facility] GFRE 54.0 Below low normal 10/20/2023 60 - [facility] SODIUM 139.0 mmol/L Normal 10/20/2023 136 - 145 [facility] CHLORIDE 106.0 mmol/L Normal 10/20/2023 98 - 107 [facility] CO2 26.0 mmol/L Normal 10/20/2023 21 - 32 [facility] CALCIUM 10.2 mg/dL Above high normal 10/20/2023 8.5 - 10.1 [facility] POTASSIUM SERUM 4.4 mmol/L Normal 10/20/2023 3.5 - 5.1 [facility] GLUCOSE 140.0 mg/dL Above high normal 10/20/2023 74 - 100 [facility] BUN 25.0 mg/dL Above high normal 10/20/2023 7 - 18 [facility] CREATININE 1.38 mg/dL Above high normal 10/20/2023 0.55 - 1. 3 [facility] PATIENT FASTING? NO Normal 10/20/2023 CT [facility] PSA DIAGNOSTIC 5.77 ng/mL Normal 10/20/2023 0 - 6.5 [facility] VITAMIN D (25-HYDROXY) 54.1 ng/mL Normal 07/14/2023 30 - 100 [facility] URIC ACID 4.8 mg/dL Normal 07/14/2023 3.5 - 7.2 [facility] GFRE 43.0 Below low normal 07/14/2023 60 - [facility] LDL DIRECT MEASUREMENT 69.0 mg/dL Normal 07/14/2023 - 160 [facility] T4 FREE 0.84 ng/dL Normal 07/14/2023 0.6 - 1.38 [facility] H CALCIUM 9.7 mg/dL Normal 07/14/2023 8.5 - 10.1 [facility] BILIRUBIN,TOTAL 0.6 mg/dL Normal 07/14/2023 0.2 - 1 [facility]H CHLORIDE 104.0 mmol/L Normal 07/14/2023 98 - 107 [facility] MH GLOBULIN 3.3 g/dL Normal 07/14/2023 2.4 - 4.2 [facility] ALT (SGPT) 47.0 U/L Normal 07/14/2023 12 - 78 [facility] GLUCOSE 145.0 mg/dL Above high normal 07/14/2023 74 - 100 [facility] CO2 26.0 mmol/L Normal 07/14/2023 21 - 32 [facility] H SODIUM 137.0 mmol/L Normal 07/14/2023 136 - 145 [facility] ALBUMIN 3.6 g/dL Normal 07/14/2023 3.4 - 5 [facility] POTASSIUM SERUM 4.3 mmol/L Normal 07/14/2023 3.5 - 5.1 [facility] ALKALINE PHOSPHATASE 44.0 U/L Below low normal 07/14/2023 5 0 - 136 [facility] AST (SGOT) 25.0 U/L Normal 07/14/2023 15 - 37 [facility] BUN 27.0 mg/dL Above high normal 07/14/2023 7 - 18 [facility] A/G RATIO 1.1 g/dL Normal 07/14/2023 [facility] CREATININE 1.68 mg/dL Above high normal 07/14/2023 0.55 - 1. 3 [facility] PROTEIN, TOTAL 6.9 g/dL Normal 07/14/2023 6.4 - 8.2 [facility] BUN/CREAT.RATIO 16.1 Normal 07/14/2023 CTP [facility] PATIENT FASTING? YES Normal 07/14/2023 CT [facility] MAGNESIUM 1.9 mg/dL Normal 07/14/2023 1.8 - 2.4 [facility] LDL 53.0 Normal 07/14/2023 0 - 129 [facility] TRIGLYCERIDE 181.0 mg/dL Above high normal 07/14/2023 - 150 [facility] CHOLESTEROL 131.0 mg/dL Normal 07/14/2023 - 200 [facility] MM HDL 42.0 mg/dL Normal 07/14/2023 - [facility] TSH 1.51 uIU/mL Normal 07/14/2023 0.35 - 4.5 [facility] GLYCOHEMOGLOBIN (A1C) 7.3 % Above high normal 07/14/2023 4 - 5.6 [facility] HCT 45.1 % Normal 07/14/2023 40 - 52 [facility] RDW 13.9 % Above high normal 07/14/2023 11.1 - 13.3 [facility] LYMPHS 31.0 % Normal 07/14/2023 16 - 50 [facility] ABSOLUTE LYMPHS 2.5 K/uL Normal 07/14/2023 1.5 - 4.9 CTP MM EOSINOPHILS 2.0 % Normal 07/14/2023 0 - 6 [facility] H GRANULOCYTES 58.0 % Normal 07/14/2023 23 - 78 [facility] MONOCYTES 8.0 % Normal 07/14/2023 0 - 12 [facility] MCV 94.0 fL Normal 07/14/2023 83 - 102 [facility] WBC 8.1 K/uL Normal 07/14/2023 3.7 - 10.3 [facility] IMMATURE GRANULOCYTES 0.0 % Normal 07/14/2023 0 - 0.4 5 [facility] ABSOLUTE IMMATURE GRANULOCYTES 0.0 K/uL Normal 07/14/2023 0 - 0.3 [facility] BASOPHILS 1.0 % Normal 07/14/2023 0 - 2 [facility] PLATELET COUNT 249.0 K/uL Normal 07/14/2023 150 - 480 CTP MM ABSOLUTE GRANULOCYTES 4.7 K/uL Normal 07/14/2023 2.2 - 7 .3 [facility] ABSOLUTE BASO 0.1 K/uL Normal 07/14/2023 0 - 0.2 CTP MMH NUCLEATED RBC 0.0 % Normal 07/14/2023 0 - 0.2 [facility] MMH ABSOLUTE EOS 0.2 K/uL Normal 07/14/2023 0 - 0.7 [facility] MH HGB 14.2 g/dL Normal 07/14/2023 13.5 - 18 [facility] ABSOLUTE NUCLEATED RBC 0.0 K/uL Normal 07/14/2023 0 - 0. 012 [facility] RBC 4.81 M/uL Normal 07/14/2023 4.3 - 6 [facility] MCHC 31.5 g/dL Normal 07/14/2023 31 - 36 [facility] ABSOLUTE MONOS 0.7 K/uL Normal 07/14/2023 0.2 - 1.5 [facility] H[facility]H MPV 10.0 fL Normal 07/14/2023 8 - 12 [facility] MCH 30.0 PG Normal 07/14/2023 27 - 34 [facility] PSA DIAGNOSTIC 4.39 ng/mL Normal 06/25/2023 0 - 6.5 [facility] GLYCOHEMOGLOBIN (A1C) 6.9 % Above high normal 03/27/2023 4 - 5.6 [facility] CHLORIDE 107.0 mmol/L Normal 03/27/2023 98 - 107 [facility] POTASSIUM, PLASMA 4.2 mmol/L Normal 03/27/2023 3.5 - 5.1 [facility] CO2 24.0 mmol/L Normal 03/27/2023 21 - 32 [facility] H SODIUM 138.0 mmol/L Normal 03/27/2023 136 - 145 [facility] GFRE 60.0 Normal 03/24/2023 60 - [facility] GLUCOSE 142.0 mg/dL Above high normal 03/24/2023 74 - 100 [facility] CHLORIDE 108.0 mmol/L Above high normal 03/24/2023 98 - 107 [facility] SODIUM 141.0 mmol/L Normal 03/24/2023 136 - 145 [facility] MH CALCIUM 9.6 mg/dL Normal 03/24/2023 8.5 - 10.1 [facility] POTASSIUM SERUM 5.6 mmol/L Above high normal 03/24/2023 3.5 - 5.1 [facility] CO2 28.0 mmol/L Normal 03/24/2023 21 - 32 [facility] H BUN 17.0 mg/dL Normal 03/24/2023 7 - 18 [facility] CREATININE 1.26 mg/dL Normal 03/24/2023 0.55 - 1.3 [facility] MH PATIENT FASTING? NO Normal 03/24/2023 CT [facility] GLYCOHEMOGLOBIN (A1C) 6.8 % Above high normal 03/19/2023 4 - 5.6 [facility] PSA DIAGNOSTIC 3.68 ng/mL Normal 03/19/2023 0 - 6.5 [facility] MMH GFRE 59.0 Below low normal 03/19/2023 60 - CT [facility] BUN 14.0 mg/dL Normal 03/19/2023 7 - 18 [facility] POTASSIUM SERUM 5.3 mmol/L Above high normal 03/19/2023 3.5 - 5.1 [facility] CREATININE 1.28 mg/dL Normal 03/19/2023 0.55 - 1.3 [facility] MH CHLORIDE 106.0 mmol/L Normal 03/19/2023 98 - 107 [facility] SODIUM 141.0 mmol/L Normal 03/19/2023 136 - 145 [facility] CALCIUM 9.1 mg/dL Normal 03/19/2023 8.5 - 10.1 [facility] GLUCOSE 136.0 mg/dL Above high normal 03/19/2023 74 - 100 [facility] CO2 27.0 mmol/L Normal 03/19/2023 21 - 32 [facility] H PATIENT FASTING? NO Normal 03/19/[address]23 [facility] History of Medication Use Medication Directions Dispensed Refills Start Date End Date Stat tamsulosin (FLOMAX) 0.4 MG capsule Take 1 capsule (0.4 mg total) by mouth daily. 03/26/2020 active pioglitazone (ACTOS) 30 MG tablet Take 30 mg by mouth daily. 02/10/2020 active methocarbamol (ROBAXIN) 750 MG tablet Take 2 tablets (1,500 mg total) by mouth 3 (three) times a day as needed for muscle spasms. 10/13/2018 active methylPREDNISolone (MEDROL DOSEPAK) 4 MG tablet Take as directed. Be sure to take all the tablets in decreasing doses as stated in the pau 10/13/2018 active naloxone (NARCAN) 4 mg/0.1 mL Liquid nasal spray device [place] contents (4mg) into one nostril once. May repeat every 2 to 3 minutes in alternating nostrils. Call 911 immediately after use. 10/13/2018 active metFORMIN (GLUCOPHAGE-XR) 500 MG 24 hr tablet 10/19/2015 active lisinopril (PRINIVIL,ZeSTRIL) 10 MG tablet Take 10 mg by mouth. 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 11/07/2024 [facility] 10/14/2024 Ambulatory ABNORMAL LFTS ABNORMAL LFTS [facility] 10/07/2024 [facility] 09/27/2024 [facility] 08/08/2024 [facility] 05[facility]12/2024 [facility] 02/15/2024 [facility] 02/02/2024 [facility] 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 07/14/2023 Ambulatory [facility] 06/25/2023 Ambulatory COUGH COUGH [facility] 05/28/2023 Ambulatory [facility] 03/27/2023 Ambulatory [facility] 03/24/2023 Ambulatory [facility] 03/19/2023 Ambulatory SCREEN COLON SCREEN COLON [facility] 02/17/2023 [facility] 01/16/2023 [facility] 10/16/2022 [facility] 07/14/2022 [facility] 04/18/2022 [facility] 03/28/2022 Ambulatory Gross hematuria [facility] 11/27/2021 Ambulatory Gross hematuria [facility] 10/16/2021 Ambulatory [facility] 08/19/2021 Care Team Organization Name Specialty Phone Email Start Date End Da celia [facility] Candle Wicker ([facility]) [facility] 09/07/2024 [facility] 05/31/2023 [facility] 05[facility]31/2023 [facility] 10/11/2022 [facility] 03/28/2022 022 [facility] Lynn [facility] 03/28/2022 [facility] 03/21/2022 12/28/19 24 [facility] 11/27/2021 [facility] 10/16/2021 11/27/2021 [facility]
--- OUTSIDE RECORDS SUMMARY | 2024-11-15 14:53 | XMS_ITS | Clinical Summary ---
Author Organization [facility] Address [address] [place] [address] Care Team Providers Care Internet Marketing Executive Name Role Phone Unavailable Primary Care Provider Unavailabl e Social History Tobacco Use Types Packs/Day Years Used Date Smoking Tobacco: Never Assessed Sex and Gender Information Value Date Recorded Sex Assigned at Not on file Gender Identity Not on file Sexual Orientation Not on file Plan of Treatment Health Maintenance Due Date Last Done Comments Hepatitis C Screening 1950 COVID-19 Vaccine (#1) 02/11/1953 Depression Screening 1964 Preventative Health Evaluation 1970 DTap / Tdap / Td (1 - Tdap) 08/13/1971 Colon Cancer Screening (Colonoscopy) 1997 Shingrix-Zoster Vaccine (1 of 2) 2002 Fall Risk Assessment 2017 Pneumococcal Vaccine (1 of 1 - PCV) 2017 Influenza Vaccine (#1) 2025 RSV Adult > 60+ Yrs or Pregn ant (1 - 1-dose 75+ series) 08/13/2027 Hepatitis B Vaccines Aged Out No long er eligible based on patient's age to complete this topic RSV Ped < 20 months Aged Out No longe r eligible based on patient's age to complete this topic
== END 2024-11-15 14:17 | disposition home or self-care (01) ==
LOC: HO.HUSH 14:04
PROVIDERS: PCP Family Medicine; Visit Provider Urology
DX: C61 Malignant neoplasm of prostate (principal); Z19.1 Hormone sensitive malignancy status

== ENCOUNTER → 2024-11-15 14:03 | Outpatient (BNVA) | payer MEDICARE, SELFPAY | PROVIDERS: PCP Family Medicine; Visit Provider Urology | DX: C61 Malignant neoplasm of prostate (principal); Z19.1 Hormone sensitive malignancy status; Z79.818 Long term (current) use of other agents affecting estrogen receptors and estrogen levels | CPT/HCPCS: 96402; J9217 ==

== ENCOUNTER 2025-03-10 11:07 | Outpatient (AMB) | payer MEDICARE, SELFPAY ==
--- NOTE | 2025-03-10 11:10 | A.OFFVIS_ITS ---
Intake Visit Reasons: 4M/PSA/Testo Intake Note: Patient is present for PSA/Testosterone follow up Urology Med: Alfuzosin, Finasteride Antibiotic Allergy: None Blood Thinner: None Tobacco Shaker Required: No Director Security Management: Director Security Management Present Accompanied by: Daughter Allergies degarelix Allergy (Mild, Verified 03/10/25 11:13) rash HPI Comments Details: Joshua is a pleasant male. He is a patient of . He is seen for the following urologic conditions - Elevated PSA - Lower Urinary Tract Symptoms - Prostate Cancer Continue finasteride for another 4 month Continue Q four-month surveillance through next year Does report urinary urgency and frequency Trial OAB medication both daily and on demand 03/04 0.05 T19 11/02 PSA 0.1 T 24 - GnRH given 04/14/24 GnRH - Given high-grade nature of disease use of ARB-I during radiation may provide benefit - patient is on finasteride PSA 11/01 5.1, 02/01 5.7 PCP T calculator would suggest 5-10% risk of high-grade prostate cancer based on free and total PSA MRI performed shows 3.6 cm lesion with contrast enhancement at left apex prostate PiRADS 5 04/03 PET-CT 68Ga-PSMA (ILLUCCIX) PET/CT - There is a focus of low intensity increased PSMA activity in the right anterolateral peripheral zone of the prostate apex, as described above, which is suspicious for prostate malignancy Prostate Cancer - 03/03 - Grade Group 4 - Sarah 8 External beam radiation - [place] - Dr Kaye - August 2024 Histologic type: Adenocarcinoma Histologic grade: Sarah score: 4+4=8 % of pattern 4: 100% % of pattern 5: Not identified Grade group: 4 Tumor quantitation: Number cores positive: 5 Total number of cores: 12 % of tissue involved: See above for details Periprostatic fat inv.: Not identified Seminal vesicle inv.: Not identified Perineural inv.: Not identified LVI: Not identified Lower urinary tract symptoms Progressive rise in PSA and weakness of stream CALEB 2+ normal Prior evaluation for gross hematuria February 202002/27 CT urogram had indicated enlarged prostate. Cystoscopy confirmed finding with no abnormality of bladder but enlarged prostate Slowly rising PSA Prostate biopsy had been suggested by prior urologist Laboratory testing - 02/27 3.0, 11/29 4.5 - 03/01 ExoDx score 25 - with is over suggested cutoff of 20 however is still only indicative of relative risk - PSA on finasteride 05/01 2.4, 10/31 2.7, 06/02 4.4, 07/04 4.4 Concurrent disease include diabetes PFSH Medical History (Updated 03/10/25 @ 11:26 by Enrique Haskins MD) Prostate cancer HTN (hypertension) GERD (gastroesophageal reflux disease) Diabetes High cholesterol Surgical History (Updated 05/02/24 @ 06:21 by Sofi Bauer RN) History of hernia surgery History of laparoscopic cholecystectomy H/O shoulder surgery Social History Are you a primary clinical care manager to a significant other at home: No Do you presently have visiting nurse or other home services: No Patient Tobacco Use Status: Never used Tobacco Review of Systems Const Denies chills and Denies fever(s) Card Reports no additional complaints and Denies syncope Resp Denies cough GI Denies abdominal pain and Denies heartburn Reports as per HPI and Denies change in libido Neuro Denies syncope Psych Denies change in libido Endo Denies change in libido Physical Exam Const General: cooperative, healthy appearing, comfortable and no acute distress Orientation/consciousness: patient oriented x3 HEENT Face and sinus: Yes normal facial exam Mouth: moist mucous membranes Neck Neck: Yes normal visual inspection, Yes full ROM and Yes trachea midline Chest Chest palpation & inspection: normal inspection of the chest Resp Effort & Inspection: normal respiratory effort, able to speak in complete sentences and no respiratory distress GI Inspection: Yes normal to inspection Back/Spine/Pelvis Cervical Spine: normal cervical lordosis Thoracic/Lumbar Spine: thoracic and lumbar spine normal to inspection Skin General skin exam: no rashes or lesions noted Neuro General: patient oriented x3, gait normal, tone normal and moves all extremities Extrem General: Yes normal to inspection and Yes capillary refill normal Assessment & Plan Assessment & Plan (1) Urinary urgency: Code(s): R39.15 - Urgency of urination Category: Medical Plan Four month follow-up lab work Orders: Orders Testosterone, Total 4 Months C61 - Malignant neoplasm of prostate, Z19.1 - Hormone sensitive malignancy status Prostate Specific Antigen 4 Months C61 - Malignant neoplasm of prostate, Z19.1 - Hormone sensitive malignancy status Medications: New solifenacin 5 mg PO DAILY 30 tabs 1RF 30 days C61 - Malignant neoplasm of prostate, Z19.1 - Hormone sensitive malignancy status Patient Instructions: This note is constructed using voice recognition software. While every effort has been made to ensure accuracy validation software facilitator errors may have been included. Imaging studies, laboratory and physical exam results were discussed and reviewed in detail. No major barriers to patient understanding were identified. An opportunity to ask questions regarding the treatment plan was provided. All questions were answered. The patient expressed understanding and agreement with the above treatment plan. The patient is aware they should contact our office by phone for worsening of their current condition or the appearance of new urologic symptoms. Compliance is encouraged with any medications and followup testing that is ordered. It is a privilege to participate in the urologic care of your patient. If you have any questions or concerns regarding treatment for the above conditions, or other urologic issues, please do not hesitate to contact me. The office telephone contact is [phone]. Sincerely, Dr Enrique Haskins MD, EWA [facility] - Urology Compassionate Specialist Care for the Genitourinary System Coding Level of Care Code Est Pt Level 4 (84803) Complex EM visit Add On G2211 Diagnoses Urinary urgency R39.15
--- OUTSIDE RECORDS SUMMARY | 2025-03-10 12:40 | XMS_ITS | Clinical Summary ---
Author Organization [facility] Address [address] [place] [address] Care Team Providers Care Staff Anesthesiologist Name Role Phone Ayad Pulido MD Primary Care Provider [phone] Medications Esomeprazole Magnesium (NexIUM) [address] [...] of 2) 2002 COVID-19 Vaccine ( - 2024-2 6 season) 2025 Influenza (#1) 2025 RSV (1 - 1-dose 75+ series) 08/13/2027 Abdominal Aorta Imaging Discontinued HPV Vaccine (No Doses Required) Completed Hep A Aged Out No longer eligi [...] this topic Zoster (Zostavax) Discontinued Care Teams Staff Anesthesiologist Relationship Specialty Start Date End Date Ayad Pulido MD [address] [facility] [address] [place] [address] PCP - General 12/15/22
--- OUTSIDE RECORDS SUMMARY | 2025-03-10 12:40 | XMS_ITS | Encounter Summary ---
Author Organization [facility] Address [address] [place] [address] Care Team Providers Care Macaroni Maker Name Role Phone Shane Ho MD Primary Care Provider [phone] Reason for Visit * Reason Comments Medical Complaint Appointment Reschedule cysto Encounter Details Date Type Department Care Team (Late st Contact Info) Description 09/13/2021 Telephone [facility] Urologic Surgery [place] [address] [facility] [address] [place] [address] Keo Hemphill MD [address] [place] [address] Medical Complaint; Appointment (Reschedule cysto ) Social [...] on filedocumented in this encounter Care Teams Macaroni Maker Relationship Specialty Start Date End Date Shane Ho MD PCP - General Internal Medicine 01/03/19 documented as of this encounter
--- OUTSIDE RECORDS SUMMARY | 2025-03-10 12:40 | XMS_ITS | Encounter Summary ---
Author Organization [facility] Address [address] [place] [address] Care Team Providers Care Accounting Coordinator Name Role Phone Shane Ho MD Primary Care Provider [phone] Encounter Details Date Type Department Care Team (Late st Contact Info) Description 02/22/2019 Scanned Document [facility] [address] [facility] [address] [address] Provider, MD Maribel [address] [place] [address] Social History Tobacco Use Types Packs/Day Years Used Date Smoking Tobacco: Never Smokeless Tobacco: Never Sex and Gender Information Value Date Recorded Sex Assigned at Not on file Legal Sex Male 5:10 PM EDT Gender Identity Not on file Sexual Orientation Not on file documented as of this encounter Plan of Treatment Not on file documented as of this encounter Visit Diagnoses Not on filedocumented in this encounter Care Teams Accounting Coordinator Relationship Specialty Start Date End Date Shane Ho MD PCP - General Internal Medicine 01/03/19 documented as of this encounter
--- OUTSIDE RECORDS SUMMARY | 2025-03-10 12:40 | XMS_ITS | Encounter Summary ---
Author Organization [facility] Address [address] [place] [address] Care Team Providers Care Concrete Floor Installer Name Role Phone Shane Ho MD Primary Care Provider [phone] Encounter Details Date Type Department Care Team (Late st Contact Info) Description 11/25/2023 Scanned Document [facility] [address] [facility] [address] [place] [phone] Primary Care, Scan Social History Tobacco Use Types Packs/Day Years [...] on file documented as of this encounter Procedures Procedure Name Priority Date/Time Associated Diagnosis Comments HX OUTSIDE ORDER 11/25/2023 documented in this encounter Results * HX OUTSIDE ORDER (11/25/2023) us Scan Primary Care HX AMB PROCEDURES Final Result documented in this encounter Visit Diagnoses Not on filedocumented in this encounter Care Teams Concrete Floor Installer Relationship Specialty Start Date End Date Shane Ho MD PCP - General Internal Medicine 01/03/19 documented as of this encounter
--- OUTSIDE RECORDS SUMMARY | 2025-03-10 12:40 | XMS_ITS | Encounter Summary ---
Author Organization [facility] Address [address] [place] [address] Care Team Providers Care Journeyman Pipe Fitter Name Role Phone Shane Ho MD Primary Care Provider [phone] Encounter Details Date Type Department Care Team (Late st Contact Info) Description 11/08/2024 Scanned Document [facility] [address] [place] [place] [address] Bruna Becerra, MD [address] [place] [address] Social History Tobacco Use Types Packs/Day Years [...] on filedocumented in this encounter Care Teams Journeyman Pipe Fitter Relationship Specialty Start Date End Date Shane Ho MD PCP - General Internal Medicine 01/03/19 documented as of this encounter
--- OUTSIDE RECORDS SUMMARY | 2025-03-10 12:40 | XMS_ITS | Encounter Summary ---
Author Organization [facility] Address [address] [place] [address] Care Team Providers Care Reeling Operator Name Role Phone Shane Ho MD Primary Care Provider Encounter Details Date Type Department Care Team (Late st Contact Info) Description 03/01/2020 Telephone [facility] Urologic Surgery [address] [place] [phone] Keo Hemphill MD [address] [address] Social History Tobacco Use Types Packs/Day Years [...] have Coronavirus / COVID-19? No / Unsure 03/02/2020 4:11 PM EDT documented as of this encounter Miscellaneous Notes * Telephone Encounter - Priscilla Rivas - 03/05/2020 9:06 AM EDT Spoke with pt he is okay with waiting the 4 weeks * Telephone Encounter - Sherin Panchal - 03/01/2020 4:26 PM EDT lvm to pt to schedule a 4 week follow up for with PSA, cysto documented in this encounter Plan of Treatment Not on file documented as of this encounter Visit Diagnoses Not on filedocumented in this encounter Care Teams Reeling Operator Relationship Specialty Start Date End Date Shane oH MD PCP - General Internal Medicine 01/03/19 documented as of this encounter
--- OUTSIDE RECORDS SUMMARY | 2025-03-10 12:40 | XMS_ITS | Encounter Summary ---
Author Organization [facility] Address [address] [place] [address] Care Team Providers Care Rfid Strategist Name Role Phone Shane Ho MD Primary Care Provider [phone] Encounter Details Date Type Department Care Team (Late st Contact Info) Description 03/26/2020 Telephone [facility] Urologic Surgery [address] [place] [phone] Keo Hemphill MD [address] [place] [address] Social History Tobacco Use Types Packs/Day Years [...] have Coronavirus / COVID-19? No / Unsure 03/26/2020 10:40 AM EST documented as of this encounter Miscellaneous Notes * Telephone Encounter - Kishor Lin MA - 03/26/2020 12:35 PM EST Pt notified. * Telephone Encounter - Keo Hemphill MD - 03/26/2020 11:53 AM EST Yes he should continue taking the medication * Telephone Encounter - Kishor Lin MA - 03/26/2020 11:29 AM EST Pt states that he was taking pioglitazone for his diabetes and the side effects state that there could be blood in the urine and he would like to know should he continue taking this rx? documented in this encounter Plan of Treatment Not on file documented as of this encounter Visit Diagnoses Not on filedocumented in this encounter Care Teams Rfid Strategist Relationship Specialty Start Date End Date Shane Ho MD PCP - General Internal Medicine 01/03/19 documented as of this encounter
--- OUTSIDE RECORDS SUMMARY | 2025-03-10 12:40 | XMS_ITS | Encounter Summary ---
Author Organization [facility] Address [address] [place] [address] Care Team Providers Care Card Doffer Name Role Phone Shane Ho MD Primary Care Provider [phone] Encounter Details Date Type Department Care Team (Late st Contact Info) Description 11/28/2019 Scanned Document [facility] Urologic Surgery [address] [place] [phone] Provider, MD Maribel [address] [place] [address] Social History Tobacco Use Types Packs/Day Years [...] on filedocumented in this encounter Care Teams Card Doffer Relationship Specialty Start Date End Date Shane Ho MD PCP - General Internal Medicine 01/03/19 documented as of this encounter
--- OUTSIDE RECORDS SUMMARY | 2025-03-10 12:40 | XMS_ITS | Encounter Summary ---
Author Organization [facility] Address [address] [place] [address] Care Team Providers Care All Terrain Vehicle Racer Name Role Phone Shane Ho MD Primary Care Provider [phone] Encounter Details Date Type Department Care Team (Late st Contact Info) Description 02/29/2020 Telephone [facility] Urologic Surgery [place] [address] [facility] [address] [place] [address] Keo Hemphill MD [address] [place] [address] Social History Tobacco Use Types Packs/Day Years [...] encounter Miscellaneous Notes * Telephone Encounter - Edilberto Moraes - 02/29/2020 1:30 PM EDT Patient advised to arrive 15 min early wearing a mask. Patient coming with . COVID-19 Pre-Screening: (YES/NO) 1. Do you have a fever >=100oF - NO 2. Do you have either or both of the following symptoms: NO - New Cough - New Shortness of Breath or Difficulty Breathing 3. Do you currently have two or more of the following symptoms: NO - Chills - Repeated shaking with chills - Muscle pain - Sore throat - New headache - New loss of taste or smell - New onset of congestion/runny nose - New GI symptoms of nausea, vomiting, or diarrhea - Extreme fatigue 4. Have you been diagnosed with COVID-19 within the last 7 days? NO 5. Have you been tested for COVID-19 within the last 14 days? NO 6. Have you been instructed to quarantine because of COVID-19 illness or exposure? NO 7. Have you traveled outside of the state in the past 14 days? NO - If yes: Where did you travel? [place] [facility] practices: Travel to one of the [facility] below offer virtual visit or conversation with clinical staff member. https://[place].gov/Coronavirus/Qmbin-06-Dbozpktux-Base/Jwmzzr-Rc-ql-Out-of-[facility] Please refer to the [place] travel advisory list. Travel to one of the [facility] listed offer virtual visit or conversation with clinical staff member. https://docs.[employer].com/spreadsheets/d/e/[email or web address]/pubhtml?gid=0&single=true documented in this encounter Plan of Treatment Not on file documented as of this encounter Visit Diagnoses Not on filedocumented in this encounter Care Teams All Terrain Vehicle Racer Relationship Specialty Start Date End Date Shane Ho MD PCP - General Internal Medicine 01/03/19 documented as of this encounter
--- OUTSIDE RECORDS SUMMARY | 2025-03-10 12:40 | XMS_ITS | Clinical Summary ---
Author Organization [facility] Address [address] [place] [address] Care Team Providers Care Media Consultant Name Role Phone Unavailable Primary Care Provider [...]
--- OUTSIDE RECORDS SUMMARY | 2025-03-10 12:40 | XMS_ITS | Clinical Summary ---
Author Organization [facility] Address [address] [place] [address] Care Team Providers Care Mat Sewer Name Role Phone Shane Ho MD Primary Care Provider [phone] Allergies No known active allergies Medications ondansetron (ZOFRAN-ODT) 4 MG disintegrating tablet Take 1 tablet (4 mg total) by mouth 3 times daily (every 8 hours) as needed for nausea or vomiting. Place tablet on tongue to dissolve. 10 tablet 10/14/19 19 Active oxyCODONE-acetamin ophen (PERCOCET) 5-325 mg per tablet Take 1-2 tablets by mouth Every 4 (four) to 6 (six) hours as needed for moderate pain (pain). Max Daily Amount: 12 tablets 18 tablet 10/14/19 19 Active methocarbamol (ROBAXIN) 750 MG tablet Take 2 tablets (1,500 mg total) by mouth 3 (three) times a day as needed for muscle spasms. 30 tablet 10/14/19 19 Active senna-docusate (SENNA-S) 8.6-50 MG Take 1-2 tablets by mouth nightly as needed for constipation. 30 tablet 10/14/19 19 Active naloxone (NARCAN) 4 mg/0.1 mL Liquid nasal spray device [place] contents (4mg) into one nostril once. May repeat every 2 to 3 minutes in alternating nostrils. Call 911 immediately after use. 1 Device 10/14/19 19 Active fenofibrate micronized (LOFIBRA) 134 MG capsule Take 134 mg by mouth daily. 02/20/20 19 Active glucose blood test strip 11/02/19 16 Active lisinopril (PRINIVIL,ZeSTRIL) 10 MG tablet Take 10 mg by mouth. Active PANTOprazole (PROTONIX) 40 MG EC tablet 11/28/19 16 Active atorvastatin (LIPITOR) 20 MG tablet 01/03/20 16 Active famotidine (PEPCID) 20 MG tablet Take 40 mg by mouth daily. 01/06/20 Active pioglitazone (ACTOS) 30 MG tablet Take 30 mg by mouth daily. 02/10/20 Active alfuzosin (UROXATRAL) 10 MG 24 hr tablet take one tablet by mouth once daily before bedtime 12/22/19 Active Vitamin D3 (CHOLECALCIFEROL) 50 MCG (1999) capsule Take by mouth. 11/06/19 25 Active Jardiance 25 MG tablet Take 1 tablet by mouth. 12/21/19 25 Active finasteride (PROSCAR) 5 MG tablet 12/23/19 25 Active Januvia 100 MG tablet Take 100 mg by mouth every morning. 11/16/19 25 Active montelukast (SINGULAIR) 10 MG tablet Take 10 mg by mouth nightly. 10/25/19 Active magnesium oxide (MAG-OX) 500 MG tablet Take 1 tablet by mouth. 11/06/19 Active Active Problems Problem Noted Date Diagnosed Date Lumbar radiculopathy - Bilateral 11/08/2024 Chronic midline low back pain with left-sided sc iatica 08/04/2019 Degeneration of lumbar or lumbosacral interverte bral disc 01/11/2019 Encounters Date Type Department Care Team Description 12/27/2024 10:30 AM EDT Consult [facility] [address] [place] [address] [place] [address] Murphy Knight MD Chronic midline low back pain with left-sided sciatica (Primary Dx); Lumbar radiculopathy - Bilateral; Degeneration of intervertebral disc of lumbosacral region with discogenic back pain and lower extremity pain from Last 3 Months Family History Medical History Relation Name Comments Heart attack Father No Known Problems Mother Relation Name Status Comments Father Mother Alive Social History Tobacco Use Types Packs/Day Years [...] Sign Reading Time Taken Comments Blood Pressure 132/76 12/27/2024 10:31 AM EDT Pulse 79 10/13/2018 11:42 AM EDT Temperature 36.9 C (98.5 F) 03/26/2020 10:39 AM EST Respiratory Rate 14 10/13/2018 11:42 AM EDT Oxygen Saturation 95% 10/13/2018 11:42 AM EDT Inhaled Oxygen Concentration - - Weight 91.6 kg (202 lb) 12/27/2024 10:31 AM EDT Height 172.7 cm (5' 8 ) 12/27/2024 10:31 AM EDT Body Mass Index 30.71 12/27/2024 10:31 AM EDT Plan of Treatment Health Maintenance Due Date Last Done Comments Advance Care Planning 1950 Hepatitis C Virus Screening 1950 DTaP/Tdap/Td Vaccines (1 - Tdap) 08/13/1971 Colonoscopy 1997 Pneumococcal Vaccines 50+ (1 of 1 - PCV) 2002 RSV Vaccine 50 years and older and Patients (1 - Risk 50-74 years 1-dose series) 2002 Zoster (Shingles) Vaccine (1 of 2) 2002 Influenza Vaccine 12/09/2024 03/04/2024, , 03/12/2022, Additional history exists COVID-19 Vaccine (2024- season) 2025 01/17/2022, 03/22/2021, 07/21/2020, Additional history exists Hepatitis B Vaccines Aged Out No long er eligible based on patient's age to complete this topic Insurance MEDICARE PART A & B Member Subscriber Plan / Payer (Ef fective 2018-Present) Name:Joshua Gonzalez Member ID:[id number] Relation to Subscriber:Self Name:Joshua Gonzalez Subscriber ID:[id number] Payer ID:[id number] Group ID:Not on file Type:Not on file Address: [place] [id number] [facility] MEDICARE PART A & B Member Subscriber Plan / Payer ( fective 2018-Present) Name:Joshua Gonzalez Member ID:[id number] Relation to Subscriber:Self Name:Joshua Gonzalez Subscriber ID:[id number] Payer ID:[id number] Group ID:Not on file Type:Not on file Address: [place] [id number] [facility] Care Teams Mat Sewer Relationship Specialty Start Date End Date Shane Ho MD PCP - General Internal Medicine 01/03/19
--- OUTSIDE RECORDS SUMMARY | 2025-03-10 12:41 | XMS_ITS | Encounter Summary ---
Author Organization [facility] Address [address] [place] [id number] Care Team Providers Care Belt Maker Name Role Phone Shane Ho MD Primary Care Provider [phone] Encounter Details Date Type Department Care Team (Late st Contact Info) Description 09/05/2020 Telephone [facility] Urologic Surgery [address] [place] [address] [phone] Keo Hemphill MD [address] [place] [address] Social History Tobacco Use Types Packs/Day Years [...] on file documented as of this encounter Miscellaneous Notes * Telephone Encounter - Priscilla Rivas - 09/05/2020 1:41 PM EDT Lm for pt to call back and r/s appt on 09/24 either to [facility] same day and time or next available withDr. Hemphill in Organ documented in this encounter Plan of Treatment Not on file documented as of this encounter Visit Diagnoses Not on filedocumented in this encounter Care Teams Belt Maker Relationship Specialty Start Date End Date Shane Ho MD PCP - General Internal Medicine 01/03/19 documented as of this encounter
== END 2025-03-10 11:29 | disposition home or self-care (01) ==
LOC: HO.HUSH 11:08
PROVIDERS: PCP Family Medicine; Visit Provider Urology
DX: R39.15 Urgency of urination (principal)
CPT/HCPCS: 99214; G2211

== ENCOUNTER → 2025-03-10 11:07 | Outpatient (BNVA) | payer MEDICARE, SELFPAY | PROVIDERS: PCP Family Medicine; Visit Provider Urology | DX: R39.15 Urgency of urination (principal); R97.21 Rising PSA following treatment for malignant neoplasm of prostate; Z85.46 Personal history of malignant neoplasm of prostate; N40.1 Benign prostatic hyperplasia with lower urinary tract symptoms | CPT/HCPCS: 99212 ==